=== PATIENT | male | born 1995 | race Caucasian/White ===

== ENCOUNTER 2018-08-03 10:00 | Emergency (ER) | payer OTHER, SELFPAY ==
[2018-08-03 10:01] VITALS: BP 140/98; PULSE 101; RESP 17; TEMP 36.4; O2SAT 99; BMI 31.5
--- NOTE | 2018-08-03 10:09 | RAD_ITS ---
STUDY: X-RAY CHEST REASON FOR EXAM: Male, 23 years old. Chest heaviness. Shortness of breath TECHNIQUE: PA and lateral views of the chest. COMPARISON: None. FINDINGS: EKG leads overlies the chest. There is no consolidation, pulmonary vascular congestion or pleural effusion of the visualized lungs. Bilaterally there is perihilar minimally increased interstitial thickening noted question mild bronchiolitis.. There is an elevated diaphragm right side more than the left. Normal size heart. Normal mediastinum and jono. Normal visualized pulmonary arteries. Normal visualized aortic arch and descending thoracic aorta. Normal visualized thoracic spine. Normal visualized ribs, clavicles, and shoulders. There is no demonstrated abnormality of the visualized soft tissue structures of the upper abdomen. RAD/Chest PA and Lateral IMPRESSION: Perihilar minimally increased interstitial thickening noted, question mild bronchiolitis in the appropriate clinical context. No consolidation or vascular congestion. Electronically Signed: Nazia Rivero MD at 10:59 EDT Tel , Service support ,
--- NOTE | 2018-08-03 10:09 | EKG12_ITS ---
Test Reason : PALPS Blood Pressure : / mmHG Vent. Rate : 090 BPM Atrial Rate : 090 BPM P-R Int : 132 ms QRS Dur : 088 ms QT Int : 356 ms P-R-T Axes : 062 068 050 degrees QTc Int : 435 ms Sinus rhythm with marked sinus arrhythmia Otherwise normal ECG Confirmed by DENAE TRAN, LEONARD ([id number]), editor publications RADHA CISNEROS ([id number]) on 08/05/2018 1:25:57 PM Referred By: ROBERT Confirmed By:LEONARD PHILIPPE MD
--- NOTE | 2018-08-03 10:12 | ED.DCSUM_ITS ---
- ER Visit Summary Date of Service: 08/03/18 Chief Complaint: Chest pain, palpitations History of Present Illness: The patient is a 23 M presents to the emergency department chest pain or palpitations. Patient states he has a history of palpitations. He states he will get them almost every other month for the past 2 years. He states that they are usually fleeting and last less than a day. Over the past 3 days, he states that they have been constant. He feels like his heart is racing and skipping beats. He denies any fevers but does admit to some chills. He also admits to some shortness of breath. He states that they have never been this long. He denies any medication use. He does not smoke. He denies any stimulant or caffeine use. He has no family history of cardiac disease. Physical Examination: Vital signs reviewed General: Well-nourished, well-developed Head: Normocephalic, atraumatic Eyes: Pupils equal and reactive, extraocular muscles intact Neck, supple, no lymphadenopathy Heart: Regular rate and rhythm Respiratory: No distress, clear bilaterally Abdomen: Soft, nontender, nondistended, no peritoneal signs Back: Nontender Extremities: Nontender, no edema, no cords Skin: Normal color no rash Neuro: Alert and oriented, no focal or lateralizing deficits Test Results: [] Emergency Department Course and Treatment: The patient presents to the emergency department palpitations and dyspnea. EKG was obtained. Shows sinus arrhythmia, but there is no WPW or prolonged QT. IV was established. Patient was given fluids. I obtained a chest x-ray which is unremarkable. Given his dyspnea and tachycardia, I also obtained a d-dimer which was negative. The patient's cardiac enzymes are normal. At this time, I do not suspect a dangerous cause of his symptoms. He has an unremarkable EKG. He does have some reproducible pain. I am going to treat him with anti-inflammatories and given outpatient follow-up. He is comfortable with this plan of care peer Treatment Plan: [] Disposition: Discharge Impression: 1. Symptomatic palpitations This note was generated with [employer] software. It may contain incorrect words, spelling, and punctuation that were not noted in review of the chart prior to signing ED Disposition - Plan for ED Patient: Chief Complaint: Palpitations Instructions: ED Palpitations Prescriptions: Naproxen [Naprosyn] 500 mg PO BID PRN #20 tab Referrals: Shawn Remy DO [NON CLINICAL AFFILIATE] -
--- NOTE | 2018-08-03 10:13 | ED.RN ---
NO OLD EKG
[2018-08-03 10:37] LABS: Absolute Lymphocyte Count 4.05 X10^3/ul (0.83-4.51); Absolute Neutrophil Count 4.2 X10^3/uL (2.0-7.7); Basophil# 0.03 X10^3/uL; Basophil% 0.3 % (0-1); Eosinophils% 3.3 % (0-5); Hematocrit 43.7 % (40-54); Hemoglobin 14.9 g/dl (13.0-16.5); Lymphocyte # 4.05 X10^3/ul (4.0); Lymphocyte % 43.9 % (19-41); Mean Corp Hgb Conc 34.1 g/gl (32-36); Mean Corpuscular Hgb 29.8 pg (27.0-32.0); Mean Corpuscular Volume 87.4 fL (80-94); Mean Platelet Vol. 10.5 fl (6.2-12.0); Monocyte# 0.63 X10^3/uL; Monocyte% 6.8 % (0-10); Neutrophil % 45.5 % (47-70); Platelet Count 265 K/mm3 (150-450); RBC Distribution Width CV 14.2 % (11.6-14.6); RBC Distribution Width SD 45.1 fl (35.1-43.9); White Blood Count 9.2 K/mm3 (4.4-11.0)
[2018-08-03 10:46] LABS: Anion Gap 9 (5-15); BUN 17 mg/dL (7-18); BUN/Creat Ratio 21.2 RATIO (10-20); Calcium,Total 9.5 mg/dL (8.5-10.1); Chloride 103 mmol/L (98-107); D-Dimer Quantitative (DVT/PE) < 0.27 FEU/ug/m (0.27-0.49); EST Glomerular Filtration Rate 125 mL/min (>60); Est Glom Filt Rate - Afr Amer 151 mL/min (>60); Estimated Creatinine Clearance 145.75 ml/min; Glucose 89 mg/dL (74-106); Magnesium 2.5 mg/dL (1.6-2.6); Potassium 3.5 mmol/L (3.5-5.1); Sodium Level 141 mmol/L (136-145)
[2018-08-03 10:47] LABS: POSITIVE COUNT NO; POSITIVE DIFFERENTIAL NO; POSITIVE MORPHOLOGY NO
[2018-08-03] MEDS: Aspirin 81 MG TAB.CHEW 324 MG PO (10:47)
[2018-08-03] MEDS: 0.9% Normal Saline 1,000 ML 1000 ML IV (10:47)
[2018-08-03 10:57] VITALS: O2SAT 98
[2018-08-03 11:13] VITALS: BP 133/77; PULSE 74; RESP 16; O2SAT 99
--- NOTE | 2018-08-03 11:14 | ED.RN ---
IV DC'ED, CATHETER INTACT, SMALL GAUZE DRESSING PLACED. DISCHARGE INSTRUCTIONS GIVEN TO AND REVIEWED WITH PATIENT, PATIENT DENIES QUESTIONS OR CONCERNS AND VOICES UNDERSTANDING OF DISCHARGE INSTRUCTIONS. PT AMBULATES OUT OF ROOM WITHOUT DIFFICULTY.
== END 2018-08-03 11:15 | disposition home or self-care (01) ==
LOC: ED 10:44
PROVIDERS: Emergency Provider Emergency Medicine
DX: R00.2 Palpitations (principal); R06.00 Dyspnea, unspecified; R00.0 Tachycardia, unspecified; R07.9 Chest pain, unspecified
CPT/HCPCS: 71046; 80048; 83735; 84484; 85025; 85379; 93005; 99285; J7030; A4216

== ENCOUNTER 2021-11-29 10:36 | Inpatient (IN) | payer OTHER, SELFPAY ==
[2021-11-29 10:40] VITALS: BP 146/97; PULSE 94; RESP 20; TEMP 36.8; O2SAT 100; BMI 39.0
--- NOTE | 2021-11-29 10:45 | RAD_ITS ---
STUDY: X-RAY - RIGHT FOOT CLINICAL: Right foot pain, right foot injury. TECHNIQUE: 3 view(s) of the foot. COMPARISON: None. FINDINGS: There is a nondisplaced fracture of the calcaneal body/posterior tuberosity of the calcaneus with apparent extension into the posterior subtalar articulation. Normal visualized subtalar, talonavicular, calcaneocuboid, tarsal and tarsometatarsal articulations. Normal metatarsi. Normal metatarsophalangeal joint of the great toe. Normal tibial and fibular sesamoid bones. Normal interphalangeal joint of the great toe. Normal phalanges of the great toe. Normal second through fifth metatarsophalangeal joints. Normal interphalangeal joints and phalanges of the lesser toes. There is soft tissue swelling. RAD/Foot min 3 Views IMPRESSION: Calcaneal fracture. Electronically Signed: Arsen Shen MD at 12:01 EST ,
--- NOTE | 2021-11-29 10:45 | RAD_ITS ---
STUDY: X-RAY - RIGHT TIBIA AND FIBULA REASON FOR EXAM: Right tibial/fibular pain, right lower leg injury. TECHNIQUE: 2 view(s) of the tibia and fibula were obtained. COMPARISON: None. FINDINGS: There is a focus of sclerosis in the lateral aspect of the mid tibial diaphysis, likely fibrous dysplasia. There is no demonstrated fracture of the tibia. Normal visualized fibula. There is a small ossicle adjacent to the lateral malleolus. There is soft tissue swelling. 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 Small ossicle adjacent to the lateral malleolus. No demonstrated recent fracture of the tibia/fibula. Electronically Signed: Arsen Shen MD at 12:01 EST ,
--- NOTE | 2021-11-29 10:47 | EDS_ITS ---
HPI History of Present Illness Chief Complaint: Lower Extremity Injury Narrative Narrative: Patient presents via EMS with injury to his right lower extremity, mainly has lower leg, ankle and foot. He denies any significant past medical history, but states that while he was at work, a large crate of milk cartons fell onto his right lower extremity. He states that he went down as the stack of crates was falling, and sat down, falling into a puddle. He denies hitting his head or loss of consciousness. He states that his right lower extremity was pinned under the crates. It was not for an extended period of time. He has diffuse pain mainly of his right knee and downward on his right lower extremity. He denies other injury. No back pain. PFSH PFSH Medical History no medical history Home Medications cetirizine [Zyrtec] 10 mg PO DAILY PRN 11/29/21 [History Last Taken Unknown] Allergy/AdvReac Type Severity Reaction Status Date / Time No Known Allergies Allergy Verified 08/03/18 10:01 Surgical History no surgical history Social History Smoking Status: Never smoker ROS ROS ED ROS Narrative Constitutional: No fever, no chills. HEENT: No sore throat. No neck pain. No loss of vision. No rhinorrhea. Cardiovascular: No chest pain. No palpitations. No pedal edema. Respiratory: No cough, no shortness of breath. Abdominal: No abdominal pain. No nausea. No vomiting. Genitourinary: No dysuria. No hematuria. Musculoskeletal: Right lower extremity pain, worse with movement, mainly in right tibia and fibula down to the ankle and foot. Neurologic: No headaches. No dizziness. No lightheadedness. Skin: No rash. No change in color. Psychiatric: No depression. No anxiety. EXAM Physical Exam Narrative Exam Narrative: Afebrile. Vital signs noted. GCS 15. ABCs intact. HEENT: Normocephalic. Atraumatic. PERRL, EOMI. Neck soft and supple. No point tenderness or step off. Cardiovascular: Regular rate and rhythm. No murmurs, rubs, or gallops appreciated. Respiratory: No tachypnea. Lungs clear to auscultation bilaterally. Gastrointestinal: Abdomen soft, nontender, with normoactive bowel sounds. No rebound or guarding. Neurological: Awake. Alert. Nonfocal, nonlateralizing. Skin: No rash. Normal color. No pallor. Minimal abrasion on right knee. Musculoskeletal: No pedal edema. Right lower extremity held in flexion at the knee, and external rotation. Range of motion limited secondary to pain. Palpable dorsalis pedis pulse. Positive swelling medial malleolus with tenderness. No palpable Achilles tendon deficit. Diffuse tenderness to palpation tibia. Const Vital Signs: 11/29/21 10:40 11/29/21 10:49 Temperature 98.2 F Temperature Source Axillary Pulse Rate 94 Respiratory Rate 20 H Blood Pressure 146/97 H 152/86 H Blood Pressure Mean 113 108 Pulse Ox 100 Oxygen Delivery Method Room Air MDM MDM MDM Narrative Medical decision making narrative: Patient received 50 mcg of fentanyl intravenously for analgesia by EMS. X-rays will be obtained of the right femur, tibia and fibula, and foot. He will be given additional analgesia in the form of Dilaudid 0.5 mg intravenously. X-ray of the femur shows no evidence of fracture. X-ray of the tibia and fibula shows small ossicle by the lateral malleolus but no acute fracture. Foot x-ray shows a nondisplaced calcaneal fracture. I discussed the patient with Dr. Yang with podiatry. He has seen and evaluated the patient in the ED. He ordered a CT scan and would like the patient observed because of all the soft tissue swelling. Patient will be placed on observation in stable condition. Radiography Diagnostic Testing: Clinical Impression(s) from Imaging Studies Foot X-Ray 11/29/21 10:45 IMPRESSION: Calcaneal fracture. 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 Small ossicle adjacent to the lateral malleolus. No demonstrated recent fracture of the tibia/fibula. Electronically Signed: Arsen Shen MD at 12:01 EST , Femur X-Ray 11/29/21 11:10 IMPRESSION: Unremarkable x-ray examination of the right femur. Electronically Signed: Arsen Shen MD at 11:57 EST , Discharge Plan Dx/Rx/DC Orders Clinical Impression: Calcaneus fracture, right, Crush injury lower leg Disposition Disposition: Acute Care Hospital [facility]
[2021-11-29 10:49] VITALS: BP 152/86
[2021-11-29] MEDS: Ondansetron 4 MG/2 ML Vial IV (10:54)
[2021-11-29] MEDS: HYDROmorphone 0.5 MG/0.5 ML SYRINGE IV ×2 (10:56→13:31)
--- NOTE | 2021-11-29 11:01 | ED.RN ---
PER UNIT SUPERVISOR, KATIE, NO DRUG TESTING
--- NOTE | 2021-11-29 11:10 | RAD_ITS ---
STUDY: X-RAY - RIGHT FEMUR REASON FOR STUDY: Right femur pain, right leg injury. TECHNIQUE: 2 view(s) of the femur. COMPARISON: None. FINDINGS: Normal visualized femur. Normal visualized soft tissue structure. RAD/Femur Min 2 Views IMPRESSION: Unremarkable x-ray examination of the right femur. Electronically Signed: Arsen Shen MD at 11:57 EST ,
--- NOTE | 2021-11-29 12:15 | NURSING ---
DR MEENAKSHI CISNEROS FOR DR JAMES
--- NOTE | 2021-11-29 12:53 | CT_ITS ---
STUDY: CT RIGHT FOOT REASON FOR EXAM: Right calcaneal fracture. TECHNIQUE: Thin section transaxial imaging of the foot was obtained, with sagittal and coronal reconstructed images. Individualized dose optimization techniques were used for this CT. COMPARISON: Radiographs 11/29/2021. FINDINGS: There is a comminuted fracture of the body/posterior tuberosity junction of the calcaneus extending to the anterior aspect of the posterior subtalar articulation (sagittal reconstructions 26-28) and extending into the sustentaculum mario (coronal reconstruction 62-66). There are small ossicles of the distal aspect of the lateral malleolus (coronal reconstruction 70). Normal visualized tibiotalar, talonavicular, calcaneocuboid, tarsal and tarsometatarsal articulations. Normal metatarsi. Normal metatarsophalangeal joint of the great toe. Normal tibial and fibular sesamoid bones. Normal interphalangeal joint of the great toe. Normal phalanges of the great toe. Normal second through fifth metatarsophalangeal joints. Normal interphalangeal joints and phalanges of the lesser toes. There is soft tissue swelling. CT/Extremity Lower without Contra IMPRESSION: Comminuted calcaneal fracture. Electronically Signed: Arsen Shen MD at 13:40 EST ,
[2021-11-29 13:02] VITALS: BP 148/94; PULSE 75; RESP 18; TEMP 36.6; O2SAT 100
--- NOTE | 2021-11-29 13:04 | ED.RN ---
patient has been filled out FROI. FROI has been given to Dr. Rios to sign and now has been given to [place] for medical records. Patient has also been given a copy for her personal records.
--- NOTE | 2021-11-29 13:24 | NURSING ---
MED SURG OBS SABINA CALCANEOUS FRACTURE
[2021-11-29 14:13] VITALS: BMI 37.5
[2021-11-29 14:30] VITALS: BP 139/83; PULSE 77; RESP 16; TEMP 36.8; O2SAT 95
--- NOTE | 2021-11-29 14:44 | NURSING ---
Addendum entered by Chandni Gonsales 11/29/21 15:19: pt reports numbness to right lower extremity, able to move toes slightly upon request. very painful with minimal palpation. Original Note: neuro/circulatory check completed. pulse documented as right, but unable to specify location as it is not available. circ check completed to right dorsalis pedis pulse, 2+.
[2021-11-29] MEDS: Acetaminophen 500 MG Tablet PO ×3 (15:05→22:09)
[2021-11-29] MEDS: oxyCODONE 5 MG Tablet PO ×2 (15:06→20:51)
[2021-11-29] MEDS: MethylPREDNISolone DosePak 4 MG BOX PO ×2 (16:49→22:09)
--- NOTE | 2021-11-29 16:50 | HP.PCM_ITS ---
History and Physical Date of Admission: 11/29/21 This 26-year-old male was seen in the ED after approximately 40 gallons of milk within the milk cartons collapsed on his right foot creating a crush type injury. This occurred on today's date 11/29/2021 at approximately 12 PM. Patient was seen in the ED multiple right lower extremity radiographs were taken including femoral tibiofibular and foot. There was noted to be a nondisplaced calcaneal fracture upon the foot radiographs. After the patient suffered the injury he noted immediate pain swelling and inability to bear weight. Pain is approximately 6 out of 10 at rest. Patient denies any loss of sensation, paralysis, paresthesias at this time. Patient pain has been controlled with pain medication. Patient denies any other locations for pain at this time relates that it is predominantly at the level of the right calcaneus. No other complaints. Past medical history: Seasonal allergies Past surgical history: Denies Social history: Occasional alcohol, denies smoking illicit drug use [facility] Family [facility] noncontributory Allergies: None Objective: Vital signs: BP 139/83 pulse 77 respiratory rate 16 temperature 98.2 O2 saturation 95 Patient seen resting comfortably in bed. Patient is alert, oriented to person place and time. Vascular: Dorsalis pedis pulses palpable 2 out of 4 on the right and left. Triphasic upon Doppler examination on the right. Posterior tibial pulse on the right nonpalpable, triphasic upon Doppler examination. Posterior tibial pulse on the left palpable 2 out of 4. +2 pitting edema noted to the right foot and ankle. Foot is warm to palpation bilaterally. No evidence of pallor at this time. Neurologic: Light touch and protective sensation intact to bilateral lower extremity. Two-point discrimination intact. Sharp dull sensation intact. Muscular function remains intact to bilateral lower extremity. Dermatologic: Ecchymosis noted to the medial ankle along the course of the tarsal tunnel. Skin otherwise intact no evidence of open wounds or specific vesicular or bullous formation at this time. Musculoskeletal: Pain limited to the right calcaneal region subtalar joint, ankle joint guarded. Mild pain with passive range of motion of lesser digits, the pain is associated with the medial ankle and likely related to the course of the flexor tendons along that region. No gross deformity observed at this time. Assessment & Plan Assessment/Plan (1) Calcaneus fracture, right: QUALIFIERS: Encounter type: initial encounter Calcaneus location: body Fracture type: closed Fracture alignment: displaced Qualified Code(s): S92.011A - Displaced fracture of body of right calcaneus, initial encounter for closed fracture PLAN: Patient examined and evaluated. All findings cussed with patient in detail. Radiographs reviewed, demonstrate calcaneal body fracture at the level of the middle facet of the subtalar joint. Does not demonstrate a classic [place] classification of a calcaneal fracture due to crush type injury. CT scan was ordered in the ED, upon review there is significant comminution along the middle and posterior facets with a complete fracture of the body of the calcaneus with a mild lateral wall blowout. Clinically the patient is having significant pain which correlates with this injury. He is resting comfortably in bed and shows minimal signs of compartment syndrome at this time. Due to significance of injury, crush mechanism, and level of edema patient was admitted for every 2 hours neurovascular checks to watch for development of compartment syndrome. Patient was ordered a Medrol Dosepak to help with the patient's swelling along with Tylenol every 4 hours and oxycodone every 4 hours for pain. Patient has been placed n.p.o. in case any signs of compartment syndrome were to develop. Nursing was instructed to contact me if there are any changes with regards to his neurovascular status over the course of the next 24 hours. Patient will require open reduction and internal fixation of his right calcaneal fracture; however, due to his level of edema and the amount of soft tissue damage this procedure will be delayed until there is some resolution of the soft tissue envelope. This is to ensure that there are minimal postoperative complications such as postoperative wound dehiscence and infection formation which could be life and limb threatening in an injury such as this. Patient will be kept n.p.o. in case there are any changes in neurovascular status over the course of the next 24 hours or until reevaluation in the morning at which time he will be evaluated by physical therapy and likely discharged granted his neurovascular status does not deteriorate. At this time I do not think it would be clinically appropriate to perform compartments pressure testing as the patient has minimal in symptoms and this would likely cause the patient significant distress. Will continue to monitor closely. (2) Crush injury lower leg: QUALIFIERS: Encounter type: initial encounter Laterality: right Qualified Code(s): S87.81XA - Crushing injury of right lower leg, initial encounter
[2021-11-29 19:54] VITALS: BP 140/88; PULSE 86; RESP 16; TEMP 36.6; O2SAT 97
[2021-11-29] MEDS: 0.9% Saline Lock 10 ML Syringe IV (22:11)
[2021-11-30] VITALS (11 sets, daily range): BP systolic 111–138; BP diastolic 68–98; PULSE 80–115; RESP 14–18; TEMP 36.3–37.6; O2SAT 90–100; BMI 37.5
[2021-11-30] MEDS: Acetaminophen 500 MG Tablet PO ×5 (02:53→22:16)
[2021-11-30] MEDS: MethylPREDNISolone DosePak 4 MG BOX PO ×4 (07:55→22:17)
[2021-11-30] MEDS: oxyCODONE 5 MG Tablet PO ×2 (07:58→12:22)
[2021-11-30] MEDS: Morphine 4 MG/ML Syringe IV (11:29)
[2021-11-30] MEDS: 0.9% Saline Lock 10 ML Syringe IV (11:30)
--- NOTE | 2021-11-30 12:38 | PCM.PROGNOTE ---
Subjective Subjective This 26 yeaqr old male seen bedside this morning. Patient able to move digits, notes increased pain at this time after physicaly therapy evaluation. Report 7/10 at rest, 10/10 with any movement. Denies any loss of sensation. No other complaints. Objective Data Objective Data Vital Signs: Vital Signs Temp Pulse Resp BP Pulse Ox 97.6 F L 80 14 126/76 H 99 11/30/21 07:49 11/30/21 07:49 11/30/21 07:49 11/30/21 07:49 11/30/21 07:49 Oxygen Delivery Method Room Air Weight: 118.614 kg Body Mass Index (BMI) 37.5 Intake & Output: Intake and Output for Last 24 Hours 11/28/21 11/29/21 11/30/21 23:59 23:59 23:59 Intake Total 150 / 150 Output Total 1275 / 1275 650 / 650 Balance -1125 / -1125 -650 / -650 Radiography Diagnostic Testing: Radiology Impression Lower Extremity CT 11/29/21 12:53 IMPRESSION: Comminuted calcaneal fracture. Electronically Signed: Arsen Shen MD at 13:40 EST , Physical Exam Narrative Neurovascular status unchanged today, light touch, two-point discrimination intact. DP/PT pulses dopplerable to right foot triphasic. Foot warm to touch. Increased pain with passive range of motion of lesser digits. Assessment & Plan Assessment/Plan (1) Calcaneus fracture, right: QUALIFIERS: Calcaneus location: body Encounter type: initial encounter Fracture alignment: displaced Fracture type: closed Qualified Code(s): S92.011A - Displaced fracture of body of right calcaneus, initial encounter for closed fracture PLAN: Patient examined and evaluated. All findings cussed with patient in detail. Due to increased pain, IV morphine single dose 4mg ordered. PAtient continued to remain intractable. Due to sudden spike in pain this morning and crush injury, compartment pressures obtained. Patient was consented for compartment pressure testing, site was prepped with betadine paint to medial right heel at site of abductor hallucis muscle belly. local anesthesia with local inflitration technique performed at site with 3cc of 2.0% lidocaine. Using wick's catheter compartment pressure testing was performed. Medial compartment pressure noted to be: 38mmHG confirming presence of compartment syndrome. Patient will be changed to inpatient and an emergent fasciotomy to decompression the 9 compartments of the foot will be performed to prevent any ischemic complications to the right foot. This will likely require delayed primary closure on friday or friday on next week. Delayed ORIF of the calcaneal fracture will be performed upon soft tissue envelope resolution. Will continue to follow patiuent daily. (2) Crush injury lower leg: QUALIFIERS: Encounter type: initial encounter Laterality: right Qualified Code(s): S87.81XA - Crushing injury of right lower leg, initial encounter
[2021-11-30] MEDS: Lactated Ringers 1,000 ML 15 ML IV (13:00)
[2021-11-30] MEDS: Bupivacaine Mpf 0.5% 30 ML VIAL (13:45)
[2021-11-30] MEDS: Lidocaine 2% (20 ml mdv) 20 ML Vial INFILT (14:02)
--- NOTE | 2021-11-30 14:18 | PCM.OP.BLANK ---
Problems Associated Problem List Diagnoses (1) Compartment syndrome: (2) Calcaneus fracture, right: (3) Crush injury lower leg: Operative Report Date of Procedure: 11/30/21 Surgeon: Isiah Yang D.P.M Nuclear Medical Technologist: clerical assistant Mello Ding D.P.M. PGY 2 Preoperative diagnosis: Compartment syndrome right foot secondary to a crush injury and calcaneal postoperative diagnosis: Same Procedure: Fasciotomy right foot for decompression of compartment syndrome Anesthesia: General Hemostasis: No tourniquet Estimated blood loss: 30 cc Materials: None Injectables: 0.5% Marcaine plain 20 cc Indications: Was brought to the emergency room via squad after he suffered a crush related injury when a stack of milk cartons in their crates fell on his right lower extremity, it was approximately 40 gallons worth. Patient was seen in the ED and noted to have a calcaneal fracture secondary to this crush injury. A CT scan was ordered and confirmed a comminuted body fracture displaced. At that time the patient was neurovascularly intact pain was well controlled rated 5 out of 10 minimal pain with range of motion of lesser digits there was good color to the foot. This morning, the patient noted sudden increase in pain to 7 out of 10 with rest and 10 out of 10 with light movement, this did not respond to IV morphine 4 mg. He noted increased numbness tingling to his right lower extremity with a [id number] sensation. Decision was made to perform compartment pressure testing, compartment pressure to the medial foot was noted to be 38 mmHg which is greater than the normal 20-30. There is at that time the diagnosis for compartment syndrome was confirmed and patient was taken for emergent fasciotomy. Procedure in detail: Patient was induced under general anesthesia, right ankle block was performed using 20 cc of half percent Marcaine plain using standard aseptic technique a well-padded right calf tourniquet was applied right lower extremity however this was not used throughout the case. Right lower extremity was then scrubbed, prepped, draped using typical aseptic manner. Upon approval by anesthesia, incisions were drawn out using standard fasciotomy technique with the addition of the medial compartment due to extensive edema to this area. 2 dorsal incisions just medial to the second metatarsal and just lateral to the fourth metatarsal were drawn and made with a 15 blade blunt dissection was taken down the level of deep fascia. At this time deep fascia was then released alleviating pressure within the compartments located in the first second third and fourth interosseous spaces. The dorsal interossei muscle could be visualized and demonstrated healthy black bleeding with no signs of ischemia. A third incision was made along the medial heel along the course of the abductor hallucis tendon this incision was made blunt dissection was taken the level of the fascia of the abductor hallucis muscle belly, upon penetration of this deep fascial layer there is noted to be significant decompression of pressure and healthy bleeding to this muscle with no signs of ischemia at this time. The combination of all 3 of these incisions on Levin's of the foot were decompressed. These incisions will be left open and likely will be closed at a later date patient will Be kept through the weekend for observation for resolution of intractable pain, incision sites will be inspected on a daily basis. At this time the incisions were dressed with Adaptic 4 x 4's ABD pads and a dry sterile dressing with a 4 inch Jorge wrap using no compression. No pathologic specimens none, no complications, there is healthy bleeding to all identified fascial compartments suggestive of decompression of any compartment syndrome at this time. Patient tolerated procedure anesthesia well in apparent satisfactory condition is transferred to PACU vital signs stable and vascular status intact all digits for further monitoring prior to transfer back to floor.
[2021-12-01 00:28] VITALS: BP 119/73; PULSE 79; RESP 18; TEMP 36.6; O2SAT 97
[2021-12-01] MEDS: oxyCODONE 5 MG Tablet PO ×4 (00:28→17:07)
[2021-12-01] MEDS: Acetaminophen 500 MG Tablet PO ×6 (02:17→22:17)
[2021-12-01 04:49] VITALS: BP 111/68; PULSE 80; RESP 18; TEMP 36.6; O2SAT 94
[2021-12-01 08:25] VITALS: BP 154/93; PULSE 97; RESP 16; TEMP 36.9; O2SAT 95
[2021-12-01] MEDS: MethylPREDNISolone DosePak 4 MG BOX PO ×4 (08:28→22:17)
--- NOTE | 2021-12-01 09:05 | PCM.PROGNOTE ---
Subjective Subjective This 26-year-old male was seen bedside status post right foot fasciotomy for decompression of compartment syndrome, patient is 1 day postop. Patient notes improved pain today at rest states is a 5 out of 10. Patient notes he has not needed IV pain medication. Notes some continued tingling into his digits on the right lower extremity. Denies any fever, chills, nausea, vomiting, chest pain, calf pain, shortness of breath. Patient voiding urine and passing gas. Objective Data Objective Data Vital Signs: Vital Signs Temp Pulse Resp BP Pulse Ox 98.4 F 97 16 154/93 H 95 12/01/21 08:25 12/01/21 08:25 12/01/21 08:25 12/01/21 08:25 12/01/21 08:25 Oxygen Flow Rate (L/min) 2 Oxygen Delivery Method Room Air Weight: 118.614 kg Body Mass Index (BMI) 37.5 Intake & Output: Intake and Output for Last 24 Hours 11/29/21 11/30/21 12/01/21 23:59 23:59 23:59 Intake Total 150 / 150 110.5 / 110.5 Output Total 1275 / 1275 1400 / 1400 600 / 600 Balance -1125 / -1125 -1289.5 / -1289.5 -600 / -600 Lab / Micro Data Micro: Microbiology 11/30/21 13:00 Nasal Secretion SARS-CoV-2 Antigen (Rapid) - Final Physical Exam Narrative Upon examination of the right lower extremity the fasciotomy incisions to do the right foot appear to be intact demonstrating mild sanguinous drainage. No signs of infection. Dorsalis pedis posterior tibial pulses palpable at this time 2 out of 4. Patient maintains light touch and two-point discrimination to the right lower extremity. There is good color to the right foot warmth upon palpation and brisk capillary fill time to all digits on the right lower extremity. No pain with calf squeeze bilaterally. Assessment & Plan Assessment/Plan (1) Compartment syndrome: QUALIFIERS: Compartment syndrome type: traumatic Encounter type: subsequent encounter Compartment syndrome location: lower extremity Laterality: right Qualified Code(s): T79.A21D - Traumatic compartment syndrome of right lower extremity, subsequent encounter PLAN: Patient examined and evaluated, all findings With patient in detail. Patient's edema right lower extremity appears improved at this time, pain is improved at this time and well controlled without IV pain medication. Patient has continued paresthesias he was educated that this may take weeks to months to resolve. Right lower extremity dressing was removed incision sites were inspected and cleansed and redressed with Adaptic dry sterile dressing and light compression with an Jorge wrap. His incisions appear healthy at this time there appears to be good perfusion to the right lower extremity no residual signs of compartment syndrome at this time. We will continue to observe the patient for an additional 24 hours at which time she is doing well we will likely discharge him to home in a posterior splint with nonweightbearing to his right lower extremity and he will follow up in our office in 1 week for surgical planning to perform delayed open reduction with internal fixation of his right calcaneus fracture. At that time we will his fasciotomy incisions in a delayed primary closure fashion. We will reevaluate the patient tomorrow nonweightbearing to right lower extremity. (2) Calcaneus fracture, right: QUALIFIERS: Encounter type: initial encounter Calcaneus location: body Fracture type: closed Fracture alignment: displaced Qualified Code(s): S92.011A - Displaced fracture of body of right calcaneus, initial encounter for closed fracture (3) Crush injury lower leg: QUALIFIERS: Encounter type: initial encounter Laterality: right Qualified Code(s): S87.81XA - Crushing injury of right lower leg, initial encounter
[2021-12-01] MEDS: Docusate Sodium 100 MG Capsule PO (10:06)
[2021-12-01] MEDS: Morphine 4 MG/ML Syringe IV (11:24)
[2021-12-01] MEDS: 0.9% Saline Lock 10 ML Syringe IV (11:27)
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
[2021-12-01 14:35] VITALS: BP 135/76; PULSE 89; RESP 16; TEMP 36.5; O2SAT 95
[2021-12-01 20:28] VITALS: BP 128/84; PULSE 82; RESP 16; TEMP 36.7; O2SAT 94
[2021-12-02 02:10] VITALS: BP 135/77; PULSE 76; RESP 16; TEMP 36.6; O2SAT 94
[2021-12-02] MEDS: Acetaminophen 500 MG Tablet PO ×4 (02:32→13:58)
[2021-12-02 08:10] VITALS: BP 132/83; PULSE 67; RESP 16; TEMP 36.5; O2SAT 98
[2021-12-02] MEDS: MethylPREDNISolone DosePak 4 MG BOX PO ×2 (08:15→11:55)
[2021-12-02] MEDS: oxyCODONE 5 MG Tablet PO ×2 (08:15→13:57)
--- NOTE | 2021-12-02 10:16 | PCM.PROGNOTE ---
Subjective Subjective 26-year-old was seen bedside. Patient 2 days postop right foot fasciotomy, pain well controlled. Patient denies any constitutional symptoms. Patient passing gas and voiding urine. No other complaints overnight. Objective Data Objective Data Vital Signs: Vital Signs Temp Pulse Resp BP Pulse Ox 97.8 F 76 16 135/77 H 94 12/02/21 02:10 12/02/21 02:10 12/02/21 02:10 12/02/21 02:10 12/02/21 02:10 Oxygen Flow Rate (L/min) 2 Oxygen Delivery Method Room Air Weight: 118.614 kg Body Mass Index (BMI) 37.5 Intake & Output: Intake and Output for Last 24 Hours 11/30/21 12/01/21 12/02/21 23:59 23:59 23:59 Intake Total 110.5 / 110.5 800 / 800 Output Total 1400 / 1400 600 / 1100 500 / 500 Balance -1289.5 / -1289.5 200 / -300 -500 / -500 Lab / Micro Data Micro: Microbiology 11/30/21 13:00 Nasal Secretion SARS-CoV-2 Antigen (Rapid) - Final Physical Exam Narrative Upon examination of the right lower extremity the fasciotomy incisions to do the right foot appear to be intact demonstrating mild sanguinous drainage. No signs of infection. Dorsalis pedis posterior tibial pulses palpable at this time 2 out of 4. Patient maintains light touch and two-point discrimination to the right lower extremity. There is good color to the right foot warmth upon palpation and brisk capillary fill time to all digits on the right lower extremity. No pain with calf squeeze bilaterally. Assessment & Plan Assessment/Plan (1) Compartment syndrome: QUALIFIERS: Compartment syndrome type: traumatic Encounter type: subsequent encounter Compartment syndrome location: lower extremity Laterality: right Qualified Code(s): T79.A21D - Traumatic compartment syndrome of right lower extremity, subsequent encounter PLAN: Patient examined and evaluated, all findings With patient in detail. Patient's edema right lower extremity appears improved at this time, pain is improved at this time and well controlled without IV pain medication. Patient has continued paresthesias he was educated that this may take weeks to months to resolve. Right lower extremity dressing was removed incision sites were inspected and cleansed and redressed with Adaptic dry sterile dressing and a well-padded posterior splint. His incisions appear healthy at this time there appears to be good perfusion to the right lower extremity no residual signs of compartment syndrome at this time. Patient will be discharged today, he will maintain a nonweightbearing status to his right lower extremity and will follow up in clinic this week. Once there is resolution of the soft tissue envelope we will plan for delayed ORIF of right comminuted, displaced calcaneal fracture. (2) Calcaneus fracture, right: QUALIFIERS: Encounter type: initial encounter Calcaneus location: body Fracture type: closed Fracture alignment: displaced Qualified Code(s): S92.011A - Displaced fracture of body of right calcaneus, initial encounter for closed fracture (3) Crush injury lower leg: QUALIFIERS: Encounter type: initial encounter Laterality: right Qualified Code(s): S87.81XA - Crushing injury of right lower leg, initial encounter
--- NOTE | 2021-12-02 10:46 | DS.PCM_ITS ---
Providers Date of Admission: 11/29/21 Primary Care Physician: Didi Primary Care Phys Reason For Visit: CALCANEUS FRACTURE Diagnosis Discharge Diagnosis (1) Compartment syndrome: Status: Acute Code(s): T79.A0XA - Compartment syndrome, unspecified, initial encounter Qualifiers: Compartment syndrome type: traumatic Encounter type: subsequent encounter Compartment syndrome location: lower extremity Laterality: right Qualified Code(s): T79.A21D - Traumatic compartment syndrome of right lower extremity, subsequent encounter (2) Calcaneus fracture, right: Status: Acute Code(s): S92.001A - Unspecified fracture of right calcaneus, initial encounter for closed fracture Qualifiers: Encounter type: initial encounter Calcaneus location: body Fracture type: closed Fracture alignment: displaced Qualified Code(s): S92.011A - Displaced fracture of body of right calcaneus, initial encounter for closed frac ture (3) Crush injury lower leg: Status: Acute Code(s): S87.80XA - Crushing injury of unspecified lower leg, initial encounter Qualifiers: Encounter type: initial encounter Laterality: right Qualified Code(s): S87.81XA - Crushing injury of right lower leg, initial encounter Medications at Discharge Home Medications cetirizine [Zyrtec] 10 mg PO DAILY PRN 11/29/21 ibuprofen 800 mg PO Q8H #30 tab 12/02/21 oxycodone-acetaminophen [Percocet] 1 tab PO Q6H PRN 7 Days #28 tab 12/02/21 Hospital Course Operations - (fasciotomy, right foot) Procedures - (compartment pressure testing) Summary of Care Provided Minutes Spent on Discharge: 30 Hospital Course: Patient was admitted for 24-hour observation for development of compartment syndrome after he suffered a right foot crush injury related to 40 gallons of milk cartons collapsing on his right lower extremity. He suffered a comminuted calcaneal fracture confirmed by CT with diffuse swelling. Initially his pain was well controlled with p.o. medication; however, over the next 12 hours his pain did spike an increase at approximately 10:30 AM on Friday, 11 hours after the injury. At this time decision to take compartment pressures was made and his medial foot compartment yielded a pressure measurement of 38 mmHg. He was taken to the OR emergently and a fasciotomy was performed. Patient's status was then converted to inpatient for further monitoring for additional signs of compartment syndrome. Within 24 hours of the fasciotomy the patient's pain was significantly improved. Incision sites were clean plan observation. Patient was placed in a well-padded posterior splint and discharged home, a delayed ORIF of the calcaneus will be performed once there is resolution of the soft tissue edema. Patient will follow up in 1 week we will maintain a nonweightbearing status keeping his dressing clean dry and intact. Physical Exam Narrative Upon examination of the right lower extremity the fasciotomy incisions to do the right foot appear to be intact demonstrating mild sanguinous drainage. No signs of infection. Dorsalis pedis posterior tibial pulses palpable at this time 2 out of 4. Patient maintains light touch and two-point discrimination to the right lower extremity. There is good color to the right foot warmth upon palpation and brisk capillary fill time to all digits on the right lower extremity. No pain with calf squeeze bilaterally. Const Orientation / Consciousness: awake, oriented to person, oriented to place and oriented to time Weight / BMI Weight Weight: 118.614 kg Body Mass Index (BMI) 37.5 ABG / Lab / Microbiology Data Microbiology: Microbiology 11/30/21 13:00 Nasal Secretion SARS-CoV-2 Antigen (Rapid) - Final Meaningful Use Info Meaningful Use Diagnoses (Choose all that apply): None applicable Discharge Plan Admission Admit Date/Time: 11/29/21 14:26 Primary Reason for Your Visit: Compartment syndrome, right foot Attending Provider: Isiah Yang Primary Care Provider: Care Physician,No Primary Instructions Patient Instructions: Post-Op Tips: Foot Additional Instructions / Restrictions: Patient will keep dressing, posterior splint clean dry and intact until follow- up in 1 week. Maintain nonweightbearing status right lower extremity assisted with walker. Limit ambulation to in-house transfer to bathroom. Elevate right lower extremity above heart while at rest. Ice behind knee 3 times a day for 15 minutes, right lower extremity. Take pain medication as directed Percocet 5 mg / 325 mg acetaminophen. Take 1 tablet every 4-6 hours. Can supplement with up to 800 mg of ibuprofen 3 times a day. Max dosage 2400 mg per 24 hours. Follow-up in 1 week. Discharge Orders/Prescriptions Prescriptions: New oxycodone-acetaminophen [Percocet] 5-325 mg tablet 1 tab PO Q6H PRN (Reason: pain) 7 Days Qty: 28 RF: 0 ibuprofen 800 mg tablet 800 mg PO Q8H Qty: 30 RF: 0 Continued cetirizine [Zyrtec] 10 mg Tablet 10 mg PO DAILY PRN (Reason: Allergy Symptoms) RF: 0 Referrals / Follow Up: Care Physician,No Primary [Primary Care Provider] - Disposition Disposition (needs filled in before D/C Order can be placed): Home, Self Care
[2021-12-02] MEDS: 0.9% Saline Lock 10 ML Syringe IV (11:52)
[2021-12-02] MEDS: Morphine 4 MG/ML Syringe IV (11:52)
[2021-12-02 13:45] VITALS: BP 139/88; PULSE 91; RESP 18; TEMP 36.7; O2SAT 95
== END 2021-12-02 14:30 | disposition home or self-care (01) | DRG 501 ==
LOC: ED 13:00 → MS3 11-30 12:55
PROVIDERS: Admitting Provider Podiatrist; Emergency Provider Emergency Medicine; Visit Provider Podiatrist
PROC: 0KNV0ZZ Release Right Foot Muscle, Open Approach (ICD-10-PCS; principal; 2021-11-30 14:40)
DX: S92.011A Displaced fracture of body of right calcaneus, initial encounter for closed fracture (principal); T79.A21A Traumatic compartment syndrome of right lower extremity, initial encounter; W23.0XXA Caught, crushed, jammed, or pinched between moving objects, initial encounter; Y93.9 Activity, unspecified; Y92.9 Unspecified place or not applicable
CPT/HCPCS: 73552; 73590; 73630; 73700; 87426; 97116; 97162; 99251; 99285; J7120; A4216; G0463; J2405; J3490

== ENCOUNTER 2021-12-03 06:44 | Emergency (ER) | payer OTHER, SELFPAY ==
[2021-12-03 06:46] VITALS: BP 145/95; PULSE 101; RESP 21; TEMP 35.9; O2SAT 96; BMI 37.4
[2021-12-03] MEDS: MethylPREDNISolone 125 MG/2 ML Vial IV (07:19)
[2021-12-03] MEDS: Ondansetron 4 MG/2 ML Vial IV (07:19)
[2021-12-03] MEDS: Ketorolac 15 MG/ML Vial IV (07:19)
[2021-12-03] MEDS: Morphine 4 MG/ML Syringe IV (07:20)
--- NOTE | 2021-12-03 07:28 | EDS_ITS ---
HPI HPI - URI History of Present Illness Chief Complaint: Other, Pain/Inj Narrative Narrative: 26-year-old male presenting with pain in his uvula and throat. Patient states that on 11/29/2021 he had a milk carton crate collapse and 40 gallons of milk fell onto his right foot. He was diagnosed with a nondisplaced calcaneal fracture. He states he had a lot of swelling and could not bear weight. He was admitted to the hospital. Apparently he had acute onset pain that was worsening and he was taken to the OR for compartment syndrome on Friday. He states that over the course of the weekend he is noticed some swelling in his uvula. He was supposed take ibuprofen and Tylenol and fill a prescription for Percocet. He has not been able to take the Percocet because he has not filled the prescription. He has not been able to take his medications overnight because of his sore throat and difficulty swallowing. He states he woke up this morning gagging. He does not feel unwell. Is not had fever, chills, cough. He does not feel short of breath. He is tolerating his own secretions and has a somewhat muffled voice but is able to speak. He does not have any abdominal pain. ROS ROS ED Constitutional Constitutional ED: Denies chills or fever(s) Eyes Eyes: Denies blurry vision or change in vision ENT ENT ED: Reports sore throat Cardiovascular Cardiovascular: Denies chest pain, palpitations or racing heartbeat Respiratory/Chest Respiratory/Chest: Denies cough, dyspnea or sputum Gastrointestinal Gastrointestinal: Reports nausea and vomiting; Denies abdominal pain, constipation or diarrhea Genitourinary Genitourinary ED: Denies dysuria or hematuria Musculoskeletal Musculoskeletal: Denies arthralgias, myalgias or neck pain Integumentary Denies rash Neurologic Neurologic: Denies headache(s) or weakness PFSH PFSH Home Medications cetirizine [Zyrtec] 10 mg PO DAILY PRN 11/29/21 [History Last Taken 1 Week Ago ~11/22/21] ibuprofen 800 mg PO Q8H #30 tab 12/02/21 [Rx Last Taken Unknown] oxycodone-acetaminophen [Percocet] 1 tab PO Q6H PRN 7 Days #28 tab 12/02/21 [Rx Last Taken Unknown] Allergy/AdvReac Type Severity Reaction Status Date / Time No Known Allergies Allergy Verified 08/03/18 10:01 Social History Smoking Status: Never smoker EXAM Physical Exam Const Vital Signs: 12/03/21 06:46 12/03/21 06:52 Temperature 96.6 F L Temperature Source Core Pulse Rate 101 H Respiratory Rate 21 H Respiratory Effort Non-Labored Respiratory Pattern Normal Blood Pressure 145/95 H Blood Pressure Mean 111 Pulse Ox 96 Oxygen Delivery Method Room Air Positive well nourished General Appearance ED: NAD; Negative for pallor HEENT normocephalic and atraumatic Face and Sinus: normal facial exam and sinuses nontender Nose: external nose normal, nares normal and nasal mucous membranes and turbinates normal Mouth ED: Yes lips normal, Yes tongue normal, Yes salivary gland normal, Yes moist mucous membranes normal, No drooling and No trismus Mouth: lips normal, tongue normal, salivary gland normal, No drooling and No trismus Throat: tonsils abnormal bilateral erythema, exudates and hypertrophy and uvular edema Eyes PERRL and EOMs intact bilaterally Neck no lymphadenopathy, supple, no meningeal signs and no JVD Neck Narrative: No stridor General: Negative for anterior neck swelling Resp normal respiratory effort and clear to auscultation bilaterally Cardio Rate: regular rate Rhythm: regular rhythm GI non-tender and non-distended Palpation: soft Neuro oriented x3 and CN's II-XII intact bilaterally Sensorium / Orientation: alert Psych mental status grossly normal Skin General Skin Exam: Negative for jaundice or pallor Lesions: no lesions Rashes: no rashes MDM MDM MDM Narrative Medical decision making narrative: Patient presenting with erythema and swelling to the posterior oropharynx. His uvula is slightly swollen as well. He is able to tolerate his own secretions and does have a somewhat muffled voice. He states he can take his home medications because of the pain in his throat. This is also making him gag. Patient does not feel ill otherwise. IV was placed and he was given a liter of normal saline with Toradol, Zofran, morphine, Solu- Medrol. Patient reevaluated at 0820 and is doing much better. He is talking in full sentences without difficulty. His throat pain is much improved. I feel he stable for discharge at this time. He has pain medication prescribed for him. He will return for new or worsening symptoms. Impression: 1. Uvulitis Discharge Plan Triage Chief Complaint: Other, Pain/Inj ED Provider: Buddy Mcdaniel Dx/Rx/DC Orders Instructions: ED Uvulitis Prescriptions: No Action cetirizine [Zyrtec] 10 mg Tablet 10 mg PO DAILY PRN (Reason: Allergy Symptoms) RF: 0 oxycodone-acetaminophen [Percocet] 5-325 mg tablet 1 tab PO Q6H PRN (Reason: pain) 7 Days Qty: 28 RF: 0 ibuprofen 800 mg tablet 800 mg PO Q8H Qty: 30 RF: 0 Primary Care Provider: Care Physician,No Primary Referrals: Care Physician,No Primary [Primary Care Provider] - Disposition Disposition: Home, Self Care
[2021-12-03] MEDS: dexAMETHasone 10 MG/ML Vial PO.IVFORM (08:41)
[2021-12-03 08:46] VITALS: BP 136/90; PULSE 78; RESP 16; O2SAT 100
== END 2021-12-03 08:46 | disposition home or self-care (01) ==
PROVIDERS: Emergency Provider Student in an Organized Health Care Education/Training Program; Visit Provider Student in an Organized Health Care Education/Training Program
DX: K12.2 Cellulitis and abscess of mouth (principal)
CPT/HCPCS: 96374; 96375; 99284; A4216; J2405

== ENCOUNTER 2021-12-14 09:54 | Day surgery (SDC) | payer OTHER, SELFPAY ==
[2021-12-14] VITALS (11 sets, daily range): BP systolic 129–153; BP diastolic 82–129; PULSE 99–115; RESP 16; TEMP 36.8–37.8; O2SAT 92–99; BMI 36.6
--- NOTE | 2021-12-14 10:10 | EKG12_ITS ---
Test Reason : PRE-OP Blood Pressure : / mmHG Vent. Rate : 094 BPM Atrial Rate : 094 BPM P-R Int : 138 ms QRS Dur : 076 ms QT Int : 340 ms P-R-T Axes : 046 051 034 degrees QTc Int : 425 ms Normal sinus rhythm Normal ECG When compared with ECG of 03-AUG-2018 10:16, No significant change was found Confirmed by HENRY TRAN, MELY ([id number]), general expeditor MILA MARSH ([id number]) on 12/17/2021 2:39:05 PM Referred By: Isiah Yang Confirmed By:MELY FIGUEROA MD
[2021-12-14] MEDS: Lactated Ringers 1,000 ML 15 ML IV (10:33)
[2021-12-14 10:43] LABS: Hematocrit 43.4 % (40-54); Hemoglobin 14.2 g/dL (13.0-16.5); Mean Corp Hgb Conc 32.7 g/dL (32-36); Mean Corpuscular Hgb 28.7 pg (27.0-32.0); Mean Corpuscular Volume 87.9 fL (80-94); Platelet Count 358 K/mm3 (150-450); RBC Distribution Width CV 14.2 % (11.6-14.6); RBC Distribution Width SD 45.6 fl (35.1-43.9); Red Blood Count 4.94 M/mm3 (4.6-6.2); White Blood Count 10.1 K/mm3 (4.4-11.0)
[2021-12-14 11:01] LABS: ALB/GLOB Ratio 0.8 RATIO (0.9-2.4); AST(SGOT) 26 U/L (15-37); Alanine Aminotransfer ALT/SGPT 70 U/L (16-61); Albumin, Serum 3.8 g/dL (3.2-5.0); Alkaline Phosphatase 68 U/L (45-117); Anion Gap 6 (5-15); BUN 13 mg/dL (7-18); BUN/Creat Ratio 18.7 RATIO (10-20); Calcium,Total 9.9 mg/dL (8.5-10.1); Chloride 107 mmol/L (98-107); EST Glomerular Filtration Rate 143 mL/min (>60); Est Glom Filt Rate - Afr Amer 173 mL/min (>60); Estimated Creatinine Clearance 162.22 ml/min; Globulin 4.6 g/dL (2.2-4.2); Glucose 102 mg/dL (74-106); Potassium 3.8 mmol/L (3.5-5.1); Protein, Total 8.4 g/dL (6.4-8.2); Sodium Level 138 mmol/L (136-145)
--- NOTE | 2021-12-14 12:05 | RAD_ITS ---
History: Fracture fixation Right calcaneus, 10 views: Findings: 10 fluoroscopic spot views of the right calcaneus obtained in the OR at the time of surgical fixation. Lateral compression plates are in place with multiple screws with satisfactory alignment of the bony fragments. IMPRESSION: As above. at 1545 Reported and signed by: Jeison Parisi MD Electronically Signed: Jeison Parisi MD at 15:43 EST , RAD/Calcaneus min 2 Views
[2021-12-14] MEDS: Bupivacaine Mpf 0.5% 30 ML VIAL (15:11)
[2021-12-14] MEDS: BACITRACIN/POLYMYXIN B 15 GM Tube 1 APPLIC (15:17)
--- NOTE | 2021-12-14 15:56 | OP.PCM_ITS ---
Problems Associated Problem List Diagnoses (1) Calcaneus fracture, right: (2) Crush injury lower leg: (3) Displaced fracture of body of right calcaneus, subsequent encounter for fracture with routine healing: Report of Operation Date of Procedure: 12/14/21 Pre-Operative Diagnosis: Displaced calcaneal fracture right lower extremity Post-Operative Diagnosis: Same Surgery/Procedure Performed:: Open reduction with internal fixation right calcaneal fracture Description of Surgical Findings:: There is noted to be good reduction of the displaced calcaneal fracture with reestablishment of calcaneal height with in rectus alignment with regards to frontal plane. There is noted to be some bleeding, a drain was placed to prevent any postoperative hematoma. Surgeon: Isiah Yang crane mechanic: None (Ari MenezesPJessy. PGY 3) Type of Anesthesia: General and Other (Popliteal block) Drains: 1 flat VASQUEZ drain applied 7 mm Estimated Blood Loss (mL): 50 cc Description of Procedure: Patient suffered a displaced calcaneal fracture when multiple crates filled with approximately 40 gallons of milk were dropped on his right lower extremity crushing his calcaneus. Patient was admitted to the hospital at that time and he did subsequently develop compartment syndrome, fasciotomies were performed to decompress this at this time and he was discharged until a soft tissue envelope and edema would resolve prior to open reduction internal fixation of his calcaneal fracture. Patient was brought back into the operating room placed comfortably in the lateral position, all osseous prominences were offloaded to prevent any compression neuropraxia's or any complications associated with lateral positioning. Patient was induced under general anesthesia, a popliteal block was performed prior to entrance into the operating room. A well-padded thigh tourniquet was applied to the right lower extremity. Right lower extremity was then scrubbed prepped and draped using typical aseptic manner. Right lower extremity was elevated exsanguinated and thigh tourniquet was inflated to 300 mmHg. A lateral extensile incision was drawn using typical technique just anterior to the Achilles tendon extended inferiorly to the plantar calcaneus and then extended distally towards the fifth metatarsal base there was a soft apex or rounded apex. This is incision was made with a 15 blade through the epidermis dermis into subcutaneous tissue. This incision was full-thickness over the level of the calcaneus to ensure that we elevated a full-thickness periosteal flap. Blunt dissection was taken elsewhere to prevent any injury to deep or superficial neurovascular structures. Any bleeders were identified and cauterized at this time. Full-thickness flap was then dissected off of the lateral calcaneal wall to gain exposure to lateral calcaneus. Dissection was taken through the level of the calcaneal fibular ligament and the peroneal tendons were extended within the periosteal flap to prevent any injury to these as well the entire lateral wall of the calcaneus was exposed as well as the posterior middle and anterior facets of the subtalar joint. No touch technique was used to retract this full-thickness flap with 0.062 K wires which were extended into the distal fibula lateral talus and lateral cuboid. At this time fracture line could be visualized along the mid aspect of the body of the calcaneus the anterior and posterior tuber. There is noted to be significant shortening of the calcaneus as well as widening related to the initial injury. There is noted to be varus alignment of the calcaneus at this time. The fracture line was then dissected out and cleared of any interposing debris and flushed with copious amounts of normal sterile saline. Next a large Steinmann pin was placed from lateral to medial through the posterior calcaneal tuber. It was then distracted posteriorly and inferiorly to allow for reduction of the fracture line the calcaneus was then taken out of varus alignment with manual reduction and placed into slightly valgus position and pin from posterior to anterior with another Steinmann pin in this alignment additional reduction was made with [id number] reduction forceps to help maintain the frontal plane open reduction. Next a percutaneous Arthrex plate was applied using manufactures guidelines using a combination of locking and nonlocking screws. A total of 7 screws were placed. Multiple fluoroscopic imaging was performed to confirm hardware placement and maintenance of reduction after temporary fixation was removed. This included reduction of the calcaneal frontal plane malalignment on calcaneal axial imaging as well as lateral imaging of the foot and mortise views of the ankle. Once positioning and hardware placement was confirmed the tourniquet was let down tourniquet time was noted to be less than 2 hours. There is noted to be some bleeding to the site however no obvious bleeder could be identified. Decision for a 7 mm flat VASQUEZ drain to be applied to the surgical site was made and this was applied the full-thickness flap was then flushed with copious amounts of normal saline sterile saline and closed using 2- 0 Vicryl deep suture technique. Followed by vertical mattress to skin closure with 3-0 nylon. The incision was then cleansed and dressed with bacitracin Adaptic 4 x 4's ABD pads and a well-padded modified Jacobo posterior splint. Patient was tolerated procedure and anesthesia well in apparent satisfactory condition was transferred to PACU with vital signs and vascular status intact all digits for further monitoring prior to discharge. Patient will follow up on Friday at which time we will likely remove his drain. No other complications noted at this time. Grafts/Implants Used: Arthrex percutaneous plate with 6 locking screws, 1 cortical screw Complications None Admit VTE Documentation VTE Present on Admission: Yes VTE Mechan Device Prophylaxis: SCD's
[2021-12-14] MEDS: oxyCODONE 5 MG Tablet PO (17:43)
== END 2021-12-14 23:59 | disposition home or self-care (01) ==
LOC: SDC 09:59 → AC 09:59
PROVIDERS: Referring Provider Podiatrist; Visit Provider Podiatrist
PROC: (CPT 28415; principal; 2021-12-14 11:10)
DX: S92.011A Displaced fracture of body of right calcaneus, initial encounter for closed fracture (principal)
CPT/HCPCS: 28415; 73650; 76000; 80053; 85027; 87426; 93005; C1713; J7120; J2405

== ENCOUNTER 2021-12-15 12:07 | Inpatient (IN) | payer OTHER, SELFPAY ==
[2021-12-15 12:09] VITALS: BP 141/88; PULSE 113; RESP 22; TEMP 36.1; O2SAT 94; BMI 36.6
[2021-12-15 12:11] VITALS: BP 141/88; PULSE 113; RESP 22; TEMP 36.1; O2SAT 94
--- NOTE | 2021-12-15 12:37 | EDS_ITS ---
HPI History of Present Illness Chief Complaint: Lower Extremity Injury Narrative Narrative: Patient present secondary to uncontrolled postop pain. Patient suffered a right calcaneal fracture in November 29. He was admitted for observation at that time and developed compartment syndrome requiring a trip to the OR. Yesterday he underwent ORIF of the right calcaneus. Patient is currently on oxycodone at home. Pain medications were adjusted this morning by podiatry over the phone, but when pain was not well controlled he presented to the emergency room. [facility] Medical History Alcohol use Walker as ambulation aid Home Medications ibuprofen 800 mg PO Q8H #30 tab 12/02/21 [Rx Last Taken Unknown] acetaminophen [Acetaminophen Extra Strength] 1,000 mg PO Q6H PRN 12/13/21 [History Last Taken Unknown] ondansetron 4 mg PO Q8H PRN #14 tab 12/14/21 [Rx Last Taken Unknown] oxycodone 5 mg PO Q4H PRN 7 Days #42 cap 12/14/21 [Rx Last Taken Unknown] Allergy/AdvReac Type Severity Reaction Status Date / Time No Known Allergies Allergy Verified 12/15/21 12:08 Surgical History Hx of foot surgery Social History Smoking Status: Never smoker ROS ROS ED Constitutional Constitutional ED: Denies chills or fever(s) Eyes Eyes: Denies change in vision ENT ENT ED: Denies sore throat Cardiovascular Cardiovascular: Denies chest pain Respiratory/Chest Respiratory/Chest: Denies cough or dyspnea Gastrointestinal Gastrointestinal: Denies abdominal pain, nausea or vomiting Musculoskeletal Musculoskeletal: Reports arthralgias; Denies back pain or neck pain Integumentary Denies rash Neurologic Neurologic: Reports paresthesias Allergic/Immunologic Allergic/Immunologic ED: Denies urticaria EXAM Physical Exam Const Vital Signs: 12/15/21 12:09 12/15/21 12:11 12/15/21 13:23 Temperature 96.9 F L 96.9 F L Temperature Source Temporal Temporal Pulse Rate 113 H 113 H 85 Respiratory Rate 22 H 22 H 13 Blood Pressure 141/88 H 141/88 H 113/81 H Blood Pressure Mean 105 105 91 Pulse Ox 94 94 92 Oxygen Delivery Method Room Air Room Air Room Air Positive well nourished and well developed General Appearance ED: well developed HEENT Reports moist mucous membranes Eyes PERRL and EOMs intact bilaterally Neck supple Chest Wall inspection of chest normal and palpation of chest normal Resp normal respiratory effort and clear to auscultation bilaterally Cardio regular rate and regular rhythm GI non-tender Palpation: soft Extremity Extremity Narrative: Right lower extremity in posterior splint. Good cap refill in the toes distally. Sensation intact. Neuro oriented x3 Sensorium / Orientation: alert MDM MDM MDM Narrative Medical decision making narrative: Patient given 1 mg of IV Dilaudid for pain control. Treatment and Re-Evaluation Comments:: Repeat evaluation patient resting more comfortably. Oxygen saturations are marginal when he falls asleep. He easily awakens and sats go up into the mid 90s. Patient is discussed with Dr. Crews. With the degree of postop pain patient having, he will be admitted overnight for better pain control. Discharge Plan Triage Chief Complaint: Lower Extremity Injury ED Provider: Shy Jacobs Dx/Rx/DC Orders Clinical Impression: Post-op pain Primary Care Provider: Care Physician,No Primary Disposition Disposition: Acute Care Hospital [facility]
[2021-12-15] MEDS: Ondansetron 4 MG/2 ML Vial IV (12:50)
[2021-12-15] MEDS: HYDROmorphone 1 MG/ML Syringe IV ×2 (12:51→19:31)
[2021-12-15 13:23] VITALS: BP 113/81; PULSE 85; RESP 13; O2SAT 92
[2021-12-15 14:15] VITALS: BP 119/82; PULSE 88; RESP 18; TEMP 36.6; O2SAT 98
--- NOTE | 2021-12-15 14:22 | NURSING ---
med surg obs post op pain annabel
--- NOTE | 2021-12-15 14:53 | HP.PCM_ITS ---
HPI - General General Date of Admission: 12/15/21 HPI Narrative JOSE EDUARDO JACINTO, is a 26 M who presents to the ER due to uncontrolled right heel pain. He has fractured calcaneus and underwent ORIF yesterday. He did not sleep well last night. He was in 10/10 pain this morning. He called and I spoke with him - he tried to increase his pain medication and also add Tylenol however he continued to have significant pain so he came to the hospital. In the ER he was given Dilaudid which helped significantly. He has no fever, chills, nausea or vomiting. He denies falling on foot after surgery, he denies any injury to site after surgery. He relates otherwise he is doing well. He has no other complaints. [facility] Medical History Alcohol use Walker as ambulation aid Home Medications ibuprofen 800 mg PO Q8H #30 tab 12/02/21 [Rx Last Taken Unknown] acetaminophen [Acetaminophen Extra Strength] 1,000 mg PO Q6H PRN 12/13/21 [History Last Taken Unknown] ondansetron 4 mg PO Q8H PRN #14 tab 12/14/21 [Rx Last Taken Unknown] oxycodone 5 mg PO Q4H PRN 7 Days #42 cap 12/14/21 [Rx Last Taken Unknown] Allergy/AdvReac Type Severity Reaction Status Date / Time No Known Allergies Allergy Verified 12/15/21 12:08 Surgical History Hx of foot surgery Social History Smoking Status: Never smoker ROS Constitutional Constitutional: Denies body ache(s), chills, fever(s) or malaise Respiratory/Chest Respiratory/Chest: Denies change in mental status, chest tightness or shortness of breath at rest Vital Signs Vital Signs Vital Signs: 12/15/21 12:09 12/15/21 12:11 12/15/21 13:23 Temperature 96.9 F L 96.9 F L Temperature Source Temporal Temporal Pulse Rate 113 H 113 H 85 Respiratory Rate 22 H 22 H 13 Blood Pressure 141/88 H 141/88 H 113/81 H Blood Pressure Mean 105 105 91 Pulse Ox 94 94 92 Oxygen Delivery Method Room Air Room Air Room Air 12/15/21 14:15 Temperature 97.9 F Temperature Source Temporal Pulse Rate 88 Respiratory Rate 18 Blood Pressure 119/82 H Blood Pressure Mean 94 Pulse Ox 98 Oxygen Delivery Method Room Air Weight Weight: 115.666 kg Body Mass Index (BMI) 36.6 Physical Exam Const alert, oriented x3 and no apparent distress Extremity Extremity Narrative: CFT < 2 seconds to all toes, sensation intact to all toes, he is able to wiggle all toes - all right foot. No calf pain bilateral. No suspicion for DVT or infection right foot/ankle/leg. No evidence of ischemia to the right foot. Assessment & Plan Assessment/Plan (1) Calcaneus fracture, right: QUALIFIERS: Encounter type: initial encounter Calcaneus location: body Fracture type: closed Fracture alignment: displaced Qualified Code(s): S92.011A - Displaced fracture of body of right calcaneus, initial encounter for closed fracture (2) Pain in right foot: PLAN: Evaluation performed. Patient with uncontrolled pain at home, it is medically necessary for patient to be admitted for post operative pain control. He was started on IV Dilaudid 1mg q 3 hours, along with Tylenol, and Ibuprofen for post op pain control. No weightbearing right foot, keep right foot elevated at all times. Keep dressing clean, dry and intact. I did remove the splint which did help relieve some of his pain as well. DVT prophylaxis: Mechanical.
[2021-12-15 15:40] VITALS: BMI 36.6
[2021-12-15] MEDS: Ibuprofen 400 MG Tablet PO ×2 (16:36→20:54)
[2021-12-15] MEDS: Acetaminophen 325 MG Tablet 650 MG PO (19:15)
[2021-12-15] MEDS: 0.9% Saline Lock 10 ML Syringe IV (19:30)
[2021-12-15 20:45] VITALS: BP 131/74; PULSE 99; RESP 18; TEMP 36.7; O2SAT 93
[2021-12-16] MEDS: HYDROmorphone 1 MG/ML Syringe IV ×4 (00:01→09:48)
[2021-12-16 03:00] VITALS: BP 134/78; PULSE 94; RESP 16; TEMP 36.7; O2SAT 97
[2021-12-16] MEDS: 0.9% Saline Lock 10 ML Syringe IV ×4 (03:34→11:29)
[2021-12-16] MEDS: Ibuprofen 400 MG Tablet PO ×4 (03:34→21:27)
[2021-12-16 09:50] VITALS: BP 128/86; PULSE 102; RESP 18; TEMP 36.8; O2SAT 98
[2021-12-16] MEDS: HYDROmorphone 0.5 MG/0.5 ML SYRINGE IV (11:29)
--- NOTE | 2021-12-16 11:42 | PCM.PROGNOTE ---
Subjective Subjective This 26-year-old male was seen bedside day 2 postoperative from a right calcaneal fracture ORIF, he denies any fever chills nausea vomiting chest pain calf pain shortness of breath. His pain is a 6 out of 10 currently, but is manageable with IV pain medication. Patient has been voiding urine and positive bowel movement. Patient has no other complaints at this time. Objective Data Objective Data Vital Signs: Vital Signs Temp Pulse Resp BP Pulse Ox 98.2 F 102 H 18 128/86 H 98 12/16/21 09:50 12/16/21 09:50 12/16/21 09:50 12/16/21 09:50 12/16/21 09:50 Oxygen Delivery Method Room Air Weight: 115.8 kg Body Mass Index (BMI) 36.6 Intake & Output: Intake and Output for Last 24 Hours 12/14/21 12/15/21 12/16/21 23:59 23:59 23:59 Intake Total 600 / 1000 400 / 400 Output Total 215 / 847 637 / 637 Balance 385 / 153 -237 / -237 Physical Exam Const alert, oriented x3 and no apparent distress Extremity Extremity Narrative: Neurovascular status intact to right lower extremity. Incision lateral extensile to dorsal forefoot and 1 medial foot appear to be well approximated with intact sutures. No signs of infection. Vascularity to the lateral extensile incision no flap is intact there is good color. There is significant right lower extremity edema. No pain with calf squeeze. Drain is intact minimal drainage noted. Assessment & Plan Assessment/Plan (1) Calcaneus fracture, right: QUALIFIERS: Encounter type: initial encounter Calcaneus location: body Fracture type: closed Fracture alignment: displaced Qualified Code(s): S92.011A - Displaced fracture of body of right calcaneus, initial encounter for closed fracture (2) Pain in right foot: PLAN: Evaluation performed. Patient's pain is improving since dressing change, will observe overnight. Continue IV Dilaudid every 4 hours as needed. We will try to transition to p.o. pain medication tonight. We will reapply posterior splint tomorrow and discharged home for nonweightbearing on p.o. pain medication. Ordered p.o. Zofran as needed for nausea. Ordered p.o. oxycodone 5 mg every 4 hours as needed moderate pain. DC IV Dilaudid tonight. Right lower extremity was redressed with Adaptic dry sterile dressing, posterior splint was left off we will plan to reapply tomorrow.
[2021-12-16] MEDS: Acetaminophen 325 MG Tablet 650 MG PO (13:17)
[2021-12-16] MEDS: oxyCODONE 5 MG Tablet PO ×3 (13:17→21:27)
[2021-12-16 16:00] VITALS: BP 135/83; PULSE 94; RESP 16; TEMP 36.5; O2SAT 95
[2021-12-16 20:18] VITALS: BP 142/82; PULSE 106; RESP 18; TEMP 36.9; O2SAT 96
[2021-12-17] MEDS: oxyCODONE 5 MG Tablet PO ×2 (02:55→09:19)
[2021-12-17] MEDS: Ibuprofen 400 MG Tablet PO ×2 (02:55→09:19)
[2021-12-17 03:00] VITALS: BP 114/71; PULSE 92; RESP 18; TEMP 36.6; O2SAT 97
--- NOTE | 2021-12-17 07:48 | PCM.PROGNOTE ---
Subjective Subjective 26-year-old male seen bedside pain significantly improved today controlled with p.o. pain medication. Patient denies any fever chills nausea vomiting chest pain calf pain shortness of breath. Patient voiding urine and having bowel movements. No other complaints overnight. Objective Data Objective Data Vital Signs: Vital Signs Temp Pulse Resp BP Pulse Ox 97.8 F 92 18 114/71 97 12/17/21 03:00 12/17/21 03:00 12/17/21 03:00 12/17/21 03:00 12/17/21 03:00 Oxygen Delivery Method Room Air Weight: 115.8 kg Body Mass Index (BMI) 36.6 Intake & Output: Intake and Output for Last 24 Hours 12/15/21 12/16/21 12/17/21 23:59 23:59 23:59 Intake Total 600 / 1000 1500 / 1900 400 / 400 Output Total 215 / 847 637 / 637 Balance 385 / 153 863 / 1263 400 / 400 Physical Exam Const alert, oriented x3 and no apparent distress Extremity Extremity Narrative: Neurovascular status intact to right lower extremity. Incision lateral extensile to dorsal forefoot and 1 medial foot appear to be well approximated with intact sutures. No signs of infection. Vascularity to the lateral extensile incision no flap is intact there is good color. There is significant right lower extremity edema. No pain with calf squeeze. Drain is intact minimal drainage noted. Assessment & Plan Assessment/Plan (1) Calcaneus fracture, right: QUALIFIERS: Encounter type: initial encounter Calcaneus location: body Fracture type: closed Fracture alignment: displaced Qualified Code(s): S92.011A - Displaced fracture of body of right calcaneus, initial encounter for closed fracture (2) Pain in right foot: PLAN: Evaluation performed. Patient's pain is well controlled, will plan for d/c today He will continue nonweightbearing to his right lower extremity assisted by crutches and will follow up in our office in a week and a half for suture removal. He will continue to take the same pain medication that he was prescribed upon his discharge from the PACU on Friday.
[2021-12-17 08:16] VITALS: BP 132/81; PULSE 85; RESP 18; TEMP 36.7; O2SAT 98
--- NOTE | 2021-12-17 09:13 | CASEMGMT ---
FRANCESCA HART Assessment: Face to Face with pt for initial transition planning/care coordination assessment. RN HAILEY introduced self and role at [facility], pt voices understanding and consents to assessment. Pt is A/O x4 and answers all questions appropriately at this time. Pt lying in bed with at bedside. Care providers, pharmacy, and demographics verified/updated. Admitting Dx: painful calcaneus fx PCP:Pt does not currently have a PCP. He states he has a local healthcare directory pamphlet given from admission from surgery. Specialists:shobha Yang [facility] Insurance: [facility] [place] Prescription Benefit: Pt is unsure LW/HPOA: Pt denies having a LW/DPOA and denies need for info regarding AD. LNOK: Reina Polk, ; César Sloan, father Living Arrangements: Pt lives with in a two story house. They rent the upstairs so pt is on main level. He has 3 steps to enter with a rail. Transportation: Pt drove self prior to surgery. Pt will transport pt to medical appts until pt able to drive again. DME/HHC/SNF: Pt has a FWW and crutches at home. Pt denies hx of HHC or SNF stays. Pt states no concerns with going home at time of dc. He states he will have this cast for 2-3 weeks and then pt will have a hard cast and boot. Pt states no further concerns/needs. CM to follow. Advised pt to ask CM if any further question/concerns/needs arise, voices understanding. Pt Goal: Home Plan: Home with assistance.
--- NOTE | 2021-12-17 09:36 | DS.PCM_ITS ---
Providers Date of Admission: 12/15/21 Primary Care Physician: Didi Primary Care Phys Reason For Visit: PAINFUL CALCANEUS FRACTURE Diagnosis Discharge Diagnosis (1) Calcaneus fracture, right: Status: Acute Code(s): S92.001A - Unspecified fracture of right calcaneus, initial encounter for closed fracture Qualifiers: Encounter type: initial encounter Calcaneus location: body Fracture type: closed Fracture alignment: displaced Qualified Code(s): S92.011A - Displaced fracture of body of right calcaneus, initial encounter for closed fracture (2) Pain in right foot: Status: Acute Code(s): M79.671 - Pain in right foot Medications at Discharge Home Medications ibuprofen 800 mg PO Q8H #30 tab 12/02/21 acetaminophen [Acetaminophen Extra Strength] 1,000 mg PO Q6H PRN 12/13/21 ondansetron 4 mg PO Q8H PRN #14 tab 12/14/21 oxycodone 5 mg PO Q4H PRN 7 Days #42 cap 12/14/21 Hospital Course Operations None Summary of Care Provided Hospital Course: Patient was seen in ED 1 day post op and admitted for intractable post operative pain. Patient's pain improve with changing of splint. On Friday12/16/21, his dressing was changed and the drain was removed. Patient noted significant improvement in pain once htis was performed. His pain was 3/10 today. He was re-dressed with a sterile dressing and splint was re- applied. He will follow up in 1.5 weeks for possible suture removal. Weight / BMI Weight Weight: 115.8 kg Body Mass Index (BMI) 36.6 Meaningful Use Info Meaningful Use Diagnoses (Choose all that apply): None applicable Discharge Plan Admission Admit Date/Time: 12/15/21 14:02 Attending Provider: Jorge Luis Crews Primary Care Provider: Care Physician,No Primary Instructions Additional Instructions / Restrictions: same instructions from post op discharge Discharge Orders/Prescriptions Prescriptions: Continued ibuprofen 800 mg tablet 800 mg PO Q8H Qty: 30 RF: 0 acetaminophen [Acetaminophen Extra Strength] 500 mg Tablet 1,000 mg PO Q6H PRN (Reason: Pain) RF: 0 oxycodone 5 mg capsule 5 mg PO Q4H PRN (Reason: pain) 7 Days Qty: 42 RF: 0 ondansetron 4 mg tablet,disintegrating 4 mg PO Q8H PRN (Reason: nausea and vomiting) Qty: 14 RF: 0 Referrals / Follow Up: Isiah Yang DPM [STAFF PHYSICIAN] - 12/28/21 Care Physician,No Primary [Primary Care Provider] - Disposition Disposition (needs filled in before D/C Order can be placed): Home, Self Care
== END 2021-12-17 09:45 | disposition home or self-care (01) | DRG 948 ==
LOC: ED 12:21 → MS3 14:17
PROVIDERS: Admitting Provider Podiatrist; Emergency Provider Emergency Medicine; Visit Provider Podiatrist
DX: G89.18 Other acute postprocedural pain (principal); S92.011A Displaced fracture of body of right calcaneus, initial encounter for closed fracture
CPT/HCPCS: 97162; 99251; 99285; A4216; G0463; J2405

== ENCOUNTER 2021-12-18 12:40 | Emergency (ER) | payer OTHER, SELFPAY ==
[2021-12-18 12:40] VITALS: BP 173/108; PULSE 96; RESP 15; TEMP 36; O2SAT 99; BMI 36.6
--- NOTE | 2021-12-18 13:38 | CT_ITS ---
STUDY: CTA CHEST REASON FOR EXAM: Male, 26 years old. Shortness of breath. Recent calcaneal surgery. RADIATION DOSAGE (If Supplied By Facility): CTDIvol = ( 12.63 ) mGy, DLP = ( 582.53 ) mGycm TECHNIQUE: The examination was performed with the intravenous administration of IV 100mL Isovue-370. Post-processing of the angiographic images was performed, with multiplanar reformation and 3D reconstruction. Individualized dose optimization techniques were used for this CT. COMPARISON: None. FINDINGS: Normal enhancement of the main pulmonary artery and right and left pulmonary arteries. Normal enhancement of the bilateral peripheral pulmonary arteries. There is no demonstrated pulmonary embolism. Normal thoracic aorta and visualized great vessels. There is no demonstrated aortic dissection. Normal heart and pericardium. Normal mediastinum. Normal hilar regions. Normal visualized trachea and bronchi. The lungs are well expanded. Mild degree of increased markings with area of the infiltration in the anterior lateral aspect of the right lower lung. This may represent either early infiltrate versus atelectasis. Normal pleura. Normal chest wall structures. Normal osseous structures. Fatty infiltration of the liver. CT/CTA Chest W/WO Contrast IMPRESSION: Focal area of increased markings with areas of confluence in the anterior lateral aspect of the right lower lobe. This may represent either atelectasis and/or early infiltrate. Electronically Signed: Lex Davis MD at 14:27 EST ,
--- NOTE | 2021-12-18 13:39 | EDS_ITS ---
HPI History of Present Illness Chief Complaint: Shortness of Breath Detail of Chief Complaint: Shortness of breath started today Informant: patient Narrative Narrative: Patient presents to the emergency department complaint shortness of breath that he noticed today. Patient states that he started feeling like he could not get a full breath earlier in the day and then when he try to eat he started gagging because he felt like he needed to clear the food so he could breathe. He denies any chest pain. He denies significant cough. He denies fevers. Patient gives me history of recent surgery on his right foot and ankle from a work-related injury. Patient had surgery 5 days ago. After surgery patient went home and then had intractable pain so he came back to the hospital and was admitted for 2 days for pain control and discharged again yesterday. Patient takes oxycodone for pain as well as ibuprofen. Patient denies any increased swelling to his right lower extremity although he does have a splint on his leg. No history of PE or DVT. Patient does have history of anxiety but has not been bothered by it in about 4 5 years. Prior similar symptoms: No PFSH PFSH Medical History Alcohol use Walker as ambulation aid Home Medications ibuprofen 800 mg PO Q8H #30 tab 12/02/21 [Rx Last Taken Unknown] acetaminophen [Acetaminophen Extra Strength] 1,000 mg PO Q6H PRN 12/13/21 [History Last Taken Unknown] ondansetron 4 mg PO Q8H PRN #14 tab 12/14/21 [Rx Last Taken Unknown] oxycodone 5 mg PO Q4H PRN 7 Days #42 cap 12/14/21 [Rx Last Taken Unknown] doxycycline monohydrate 100 mg PO BID #20 capsule 12/18/21 [Rx Last Taken Unknown] Allergy/AdvReac Type Severity Reaction Status Date / Time No Known Allergies Allergy Verified 12/15/21 12:08 Surgical History Hx of foot surgery Social History Smoking Status: Never smoker ROS ROS ED Constitutional Constitutional ED: Reports systems reviewed and no addt'l complaints, except as documented; Denies body ache(s), change in weight or chills Eyes Eyes: Denies acute decrease in peripheral vision, change in vision, double vision or loss of vision ENT ENT ED: Reports none; Denies ear pain, lip swelling, loss taste/smell, neck pain, otalgia or sore throat Cardiovascular Cardiovascular: Reports none; Denies abdominal pain, chest pain with activity, leg edema, lightheadedness, palpitations, rapid heart rate or syncope Respiratory/Chest Respiratory/Chest: Reports none and dyspnea; Denies change in mental status, dry cough, hemoptysis, shortness of breath at rest or shortness of breath with exertion Gastrointestinal Gastrointestinal: Reports none; Denies abdominal pain, change in stool character, diarrhea, hematemesis, hematochezia, melena, rectal bleeding or vomiting Genitourinary Genitourinary ED: Reports none; Denies abdominal discomfort, anuria, dysuria, genital pain or polyuria Musculoskeletal Musculoskeletal: Reports none; Denies arthralgias, back pain, difficulty walking, extremity pain, muscle weakness or myalgias Integumentary Reports none; Denies abscess or rash Neurologic Neurologic: Reports none; Denies abnormal gait, confusion, focal weakness, frequent falls, headache(s), loss of vision, numbness, paresthesias, radicular pain, vertigo or weakness Psychiatric Psychiatric: Reports systems reviewed and no addt'l complaints, except as docum ented and none; Denies behavioral changes, confusion, difficulty concentrating, hallucinations, suicidal ideation, tactile hallucinations or visual hallucinations Endocrine Endocrinology: Denies none, cold intolerance, excessive sweating, fatigue or heat intolerance Hematologic/Lymphatic Hematologic/Lymphatic: Reports none; Denies anemia, easy bleeding or easy bruising Allergic/Immunologic Allergic/Immunologic ED: Denies as per HPI, none, lip swelling, mouth swelling, throat swelling, tongue swelling or hives EXAM Physical Exam Const Vital Signs: 12/18/21 12:40 12/18/21 13:55 12/18/21 14:46 Temperature 96.8 F L Temperature Source Temporal Pulse Rate 96 Respiratory Rate 15 16 Respiratory Effort Short of Breath Blood Pressure 173/108 H Blood Pressure Mean 129 Pulse Ox 99 Oxygen Delivery Method Room Air Positive well nourished and well developed General Appearance ED: well developed and NAD HEENT Reports TM's clear and moist mucous membranes normocephalic and atraumatic; Negative for trauma or tenderness Tympanic Membrane ED: Yes TM's clear Eyes PERRL and EOMs intact bilaterally General Eye ED: Negative for pale conjunctiva or scleral icterus Neck no lymphadenopathy, supple and no JVD General: Negative for tenderness Chest Wall inspection of chest normal and palpation of chest normal Chest: Negative for tenderness Resp normal respiratory effort and clear to auscultation bilaterally Effort and Inspection: Negative for respiratory distress or pain with movement Auscultation: Negative for rhonchi, wheezes or diminished lung sounds Cardio regular rate, regular rhythm, S1 normal heart sound, S2 normal heart sound and no murmurs Peripheral Pulses: pulses 2+ throughout GI normal to inspection, nondistended, normoactive bowel sounds, soft to palpation, non-tender, non-distended and no masses Back/Spine no CVA tenderness and no thoracic nor lumbar tenderness Extremity normal to inspection General Extremety ED: Negative for edema General Extremity: Negative for edema Neuro oriented x3, CN's II-XII intact bilaterally, no sensory deficits noted and gait normal Sensorium / Orientation: awake, alert, oriented to person, oriented to place and oriented to time Motor Exam: strength 5/5 throughout and strength abnormal Psych mental status grossly normal Skin no rashes or lesions noted and no wounds MDM MDM MDM Narrative Medical decision making narrative: Patient had an IV line established on arrival and he had a CTA of the chest that was negative for PE. He did have a right lower lobe area of confluence which could represent either atelectasis and/or early infiltrate. At this point patient will be started on doxycycline and given a albuterol MDI. Patient advised to return if increasing shortness of breath or condition should worsen anyway. Patient to follow-up with his primary care physician in 3 to 5 days. Lab Data Attestation: I reviewed the patient's lab results. Labs: Laboratory Results - last 24 hr 12/18/21 12/18/21 13:52 13:52 WBC 8.1 RBC 4.38 L Hgb 13.2 Hct 38.9 L MCV 88.8 MCH 30.1 MCHC 33.9 RDW Std Deviation 44.3 H RDW Coeff of Mark 13.7 Plt Count 396 MPV 10.0 Sodium 137 Potassium 3.7 Chloride 105 Carbon Dioxide 27.0 Anion Gap 5 BUN 16 Creatinine 0.65 L Estim Creat Clear Calc 174.70 Est GFR (MDRD) Af Amer 188 Est GFR (MDRD) Non-Af 156 BUN/Creatinine Ratio 24.7 H Glucose 95 Calcium 9.5 Radiography Diagnostic Testing: Clinical Impression(s) from Imaging Studies Chest CTA 12/18/21 13:38 IMPRESSION: Focal area of increased markings with areas of confluence in the anterior lateral aspect of the right lower lobe. This may represent either atelectasis and/or early infiltrate. Electronically Signed: Lex Davis MD at 14:27 EST , Discharge Plan Triage Chief Complaint: Shortness of Breath ED Provider: Yara Jones Dx/Rx/DC Orders Clinical Impression: Acute dyspnea Instructions: ED Dyspnea Prescriptions: New doxycycline monohydrate 100 MG capsule 100 mg PO BID Qty: 20 RF: 0 No Action ibuprofen 800 mg tablet 800 mg PO Q8H Qty: 30 RF: 0 acetaminophen [Acetaminophen Extra Strength] 500 mg Tablet 1,000 mg PO Q6H PRN (Reason: Pain) RF: 0 oxycodone 5 mg capsule 5 mg PO Q4H PRN (Reason: pain) 7 Days Qty: 42 RF: 0 ondansetron 4 mg tablet,disintegrating 4 mg PO Q8H PRN (Reason: nausea and vomiting) Qty: 14 RF: 0 Primary Care Provider: Care Physician,No Primary Referrals: Louis Ridley MD [STAFF PHYSICIAN] - 3-5 Days Care Physician,No Primary [Primary Care Provider] - Disposition Disposition: Home, Self Care
[2021-12-18 13:58] LABS: Hematocrit 38.9 % (40-54); Hemoglobin 13.2 g/dL (13.0-16.5); Mean Corp Hgb Conc 33.9 g/dL (32-36); Mean Corpuscular Hgb 30.1 pg (27.0-32.0); Mean Corpuscular Volume 88.8 fL (80-94); Platelet Count 396 K/mm3 (150-450); RBC Distribution Width CV 13.7 % (11.6-14.6); RBC Distribution Width SD 44.3 fl (35.1-43.9); Red Blood Count 4.38 M/mm3 (4.6-6.2); White Blood Count 8.1 K/mm3 (4.4-11.0)
[2021-12-18 14:10] LABS: Anion Gap 5 (5-15); BUN 16 mg/dL (7-18); BUN/Creat Ratio 24.7 RATIO (10-20); Calcium,Total 9.5 mg/dL (8.5-10.1); Chloride 105 mmol/L (98-107); Creatinine, Serum 0.65 mg/dL (0.70-1.30); EST Glomerular Filtration Rate 156 mL/min (>60); Est Glom Filt Rate - Afr Amer 188 mL/min (>60); Glucose 95 mg/dL (74-106); Potassium 3.7 mmol/L (3.5-5.1); Sodium Level 137 mmol/L (136-145)
[2021-12-18 14:46] VITALS: RESP 16
[2021-12-18] MEDS: Doxycycline 100 MG CAPSULE PO (15:07)
--- NOTE | 2021-12-19 03:27 | ED.RN ---
checked for workers comp paperwork
== END 2021-12-18 15:16 | disposition home or self-care (01) ==
PROVIDERS: Emergency Provider Emergency Medicine; Visit Provider Emergency Medicine
DX: R06.00 Dyspnea, unspecified (principal); F41.9 Anxiety disorder, unspecified; Z79.899 Other long term (current) drug therapy
CPT/HCPCS: 71275; 80048; 85027; 99283; Q9967; A4216

== ENCOUNTER 2021-12-29 14:00 | Emergency (ER) | payer OTHER, SELFPAY ==
[2021-12-29 14:01] VITALS: BP 151/90; PULSE 115; RESP 20; TEMP 36.4; O2SAT 96; BMI 36.6
--- NOTE | 2021-12-29 14:25 | EKG12_ITS ---
Test Reason : SOB Blood Pressure : / mmHG Vent. Rate : 106 BPM Atrial Rate : 106 BPM P-R Int : 138 ms QRS Dur : 084 ms QT Int : 326 ms P-R-T Axes : 052 069 059 degrees QTc Int : 433 ms Sinus tachycardia Otherwise normal ECG Confirmed by ELLYN TRAN, VIKASH ([id number]), film or videotape editor MILA MARSH ([id number]) on 12/31/2021 11:39:58 A M Referred By: JAMIA Confirmed By:VIDYA RAGLAND MD
--- NOTE | 2021-12-29 14:25 | CT_ITS ---
STUDY: CTA CHEST REASON FOR EXAM: Male, 26 years old. Chest pain RADIATION DOSAGE (If Supplied By Facility): CTDIvol = ( 16.23 ) mGy, DLP = ( 524.71 ) mGycm TECHNIQUE: The examination was performed with the intravenous administration of IV 100mL Isovue-370. Post-processing of the angiographic images was performed, with multiplanar reformation and 3D reconstruction. Individualized dose optimization techniques were used for this CT. COMPARISON: None. FINDINGS: 22 Normal enhancement of the main pulmonary artery and right and left pulmonary arteries. Normal enhancement of the bilateral peripheral pulmonary arteries. There is no demonstrated pulmonary embolism. Normal thoracic aorta and visualized great vessels. There is no demonstrated aortic dissection. Normal heart and pericardium. Normal mediastinum. Normal hilar regions. Normal visualized trachea and bronchi. The lungs are well expanded. There are no pulmonary infiltrates. There are no pleural effusions. Normal chest wall structures. Normal osseous structures. Normal visualized upper abdomen. CT/CTA Chest W/WO Contrast IMPRESSION: 1. No evidence of pulmonary embolism or aortic dissection. 2. No focal acute infiltrate or pleural effusions. Electronically Signed: Cesar Stovall MD at 15:15 EDT ,
--- NOTE | 2021-12-29 14:29 | ED.VIS.DYS ---
HPI History of Present Illness Chief Complaint: Shortness of Breath Narrative Narrative: 26-year-old male presenting with dyspnea on exertion. He states he does have some dyspnea at rest but it is really worse when he exerts himself. He feels like he ran a marathon when he just walks a little bit. Patient reporting right-sided chest pain as well. Patient was seen about 10 days ago in the emergency room for shortness of breath which was similar. He was diagnosed with a right lower lobe pneumonia and has been on doxycycline at that time he was prescribed an inhaler. Patient with recent calcaneal fracture on the right with ORIF about 15 days ago. Patient has no history of DVT/PE. CTA of the chest was performed 10 days ago and was negative for PE. Patient reports that he did not have any fever, chills, cough, body aches. He initially was improving but when his antibiotics stopped he started feeling more short of breath. He is used his inhaler more frequently today. PFSH PFSH Medical History Alcohol use Walker as ambulation aid Home Medications ibuprofen 800 mg PO Q8H #30 tab 12/02/21 [Rx Last Taken Unknown] acetaminophen [Acetaminophen Extra Strength] 1,000 mg PO Q6H PRN 12/13/21 [History Last Taken Unknown] ondansetron 4 mg PO Q8H PRN #14 tab 12/14/21 [Rx Last Taken Unknown] oxycodone 5 mg PO Q4H PRN 7 Days #42 cap 12/14/21 [Rx Last Taken Unknown] Allergy/AdvReac Type Severity Reaction Status Date / Time No Known Allergies Allergy Verified 12/29/21 14:02 Surgical History Hx of foot surgery Social History Smoking Status: Never smoker ROS ROS ED Constitutional Constitutional ED: Denies chills or fever(s) Eyes Eyes: Denies blurry vision or diplopia ENT ENT ED: Denies rhinorrhea or sore throat Cardiovascular Cardiovascular: Reports chest pain Respiratory/Chest Respiratory/Chest: Reports dyspnea and dyspnea on exertion Gastrointestinal Gastrointestinal: Denies abdominal pain, nausea or vomiting Genitourinary Genitourinary ED: Denies dysuria or hematuria Musculoskeletal Musculoskeletal: Denies back pain or neck pain Integumentary Denies rash Neurologic Neurologic: Denies headache(s) or paresthesias Psychiatric Psychiatric: Denies anxiety or depression EXAM Physical Exam Const Vital Signs: 12/29/21 14:01 12/29/21 14:33 12/29/21 14:34 Temperature 97.5 F L Temperature Source Temporal Pulse Rate 115 H Respiratory Rate 20 H Respiratory Effort Short of Breath Respiratory Depth Normal Respiratory Pattern Normal Blood Pressure 151/90 H Blood Pressure Mean 110 Pulse Ox 96 98 Oxygen Delivery Method Room Air Room Air 12/29/21 15:00 12/29/21 16:00 Temperature Temperature Source Pulse Rate 88 88 Respiratory Rate 10 L 10 L Respiratory Effort Respiratory Depth Respiratory Pattern Blood Pressure 122/81 H 117/72 Blood Pressure Mean 94 87 Pulse Ox 96 96 Oxygen Delivery Method Room Air Room Air Positive well nourished General Appearance ED: NAD HEENT Reports moist mucous membranes atraumatic Eyes PERRL and EOMs intact bilaterally General Eye ED: Negative for pale conjunctiva or scleral icterus Resp normal respiratory effort Cardio regular rhythm Rate: tachycardic Neuro oriented x3 and CN's II-XII intact bilaterally Sensorium / Orientation: alert Motor Exam: strength 5/5 throughout Psych mental status grossly normal Thought Process: normal thought process MDM MDM MDM Narrative Medical decision making narrative: Patient presenting with shortness of breath on exertion. He states he was previously treated with doxycycline and improved and then felt short of breath again today. He states it feels like he is running a marathon. I obtained an EKG which on my interpretation shows sinus tachycardia with a ventricular to 106 bpm without sign of ischemic change or dysrhythmia. CBC and BMP are unremarkable with exception of a potassium of 3.4. High-sensitivity troponin is 4. I obtained a CTA due to the patient's history of surgery and right-sided chest pain with shortness of breath on exertion and CTA was negative for PE or infection. Patient's vital signs are stable and he is afebrile. He is not requiring oxygen. He has a negative work-up. I do not believe he needs a delta troponin. Patient counseled on findings and is amenable to discharge home. Impression: 1. Chest pain noncardiac 2. Dyspnea on exertion Lab Data Attestation: I reviewed the patient's lab results. Labs: Laboratory Results - last 24 hr 12/29/21 12/29/21 14:34 14:34 WBC 10.3 RBC 4.78 Hgb 14.3 Hct 41.7 MCV 87.2 MCH 29.9 MCHC 34.3 RDW Std Deviation 44.4 H RDW Coeff of Mark 13.9 Plt Count 384 MPV 10.4 Immature Gran % (Auto) 0.300 Neut % (Auto) 40.3 L Lymph % (Auto) 48.4 H [place] % (Auto) 7.6 Eos % (Auto) 2.9 Baso % (Auto) 0.5 Absolute Neuts (auto) 4.2 Absolute Lymphs (auto) 5.00 H Nucleated RBC % 0 Sodium 138 Potassium 3.4 L Chloride 106 Carbon Dioxide 25.0 Anion Gap 7 BUN 19 H Creatinine 0.68 L Estim Creat Clear Calc 166.99 Est GFR (MDRD) Af Amer 178 Est GFR (MDRD) Non-Af 147 BUN/Creatinine Ratio 28.0 H Glucose 100 Calcium 9.9 Troponin I High Sens 4 Radiography Diagnostic Testing: Clinical Impression(s) from Imaging Studies Chest CTA 12/29/21 14:25 IMPRESSION: 1. No evidence of pulmonary embolism or aortic dissection. 2. No focal acute infiltrate or pleural effusions. Electronically Signed: Cesar Stovall MD at 15:15 EDT , Discharge Plan Triage Chief Complaint: Shortness of Breath ED Provider: Buddy Mcdaniel Dx/Rx/DC Orders Instructions: ED Dyspnea Prescriptions: No Action ibuprofen 800 mg tablet 800 mg PO Q8H Qty: 30 RF: 0 acetaminophen [Acetaminophen Extra Strength] 500 mg Tablet 1,000 mg PO Q6H PRN (Reason: Pain) RF: 0 oxycodone 5 mg capsule 5 mg PO Q4H PRN (Reason: pain) 7 Days Qty: 42 RF: 0 ondansetron 4 mg tablet,disintegrating 4 mg PO Q8H PRN (Reason: nausea and vomiting) Qty: 14 RF: 0 Primary Care Provider: Care Physician,No Primary Referrals: Care Physician,No Primary [Primary Care Provider] - Disposition Disposition: Home, Self Care Discharge Date/Time: 12/29/21 16:30
[2021-12-29] MEDS: Aspirin 81 MG TAB.CHEW 324 MG PO (14:32)
[2021-12-29 14:34] VITALS: O2SAT 98
[2021-12-29] MEDS: 0.9% Normal Saline 1,000 ML 1000 ML IV (14:38)
[2021-12-29 15:00] VITALS: BP 122/81; PULSE 88; RESP 10; O2SAT 96
[2021-12-29 15:17] LABS: Absolute Neutrophil Count 4.2 X10^3/uL (2.0-7.7); Basophil# 0.05 X10^3/uL; Basophil% 0.5 % (0-1); Eosinophils% 2.9 % (0-5); Hematocrit 41.7 % (40-54); Hemoglobin 14.3 g/dL (13.0-16.5); Lymphocyte % 48.4 % (19-41); Mean Corp Hgb Conc 34.3 g/dL (32-36); Mean Corpuscular Hgb 29.9 pg (27.0-32.0); Mean Corpuscular Volume 87.2 fL (80-94); Mean Platelet Vol. 10.4 fl (6.2-12.0); Monocyte# 0.79 X10^3/uL; Monocyte% 7.6 % (0-10); NRBC Flagged by Analyzer 0 % (0-5); Neutrophil # 4.17 X10^3/uL (2.7-7.7); Neutrophil % 40.3 % (47-70); Platelet Count 384 K/mm3 (150-450); RBC Distribution Width CV 13.9 % (11.6-14.6); RBC Distribution Width SD 44.4 fl (35.1-43.9); Red Blood Count 4.78 M/mm3 (4.6-6.2); White Blood Count 10.3 K/mm3 (4.4-11.0)
[2021-12-29 15:48] LABS: Anion Gap 7 (5-15); BUN 19 mg/dL (7-18); Calcium,Total 9.9 mg/dL (8.5-10.1); Chloride 106 mmol/L (98-107); Creatinine, Serum 0.68 mg/dL (0.70-1.30); EST Glomerular Filtration Rate 147 mL/min (>60); Est Glom Filt Rate - Afr Amer 178 mL/min (>60); Estimated Creatinine Clearance 166.99 ml/min; Glucose 100 mg/dL (74-106); Potassium 3.4 mmol/L (3.5-5.1); Sodium Level 138 mmol/L (136-145); Troponin-I HS 4 pg/mL (3.0-78.0)
[2021-12-29 16:00] VITALS: BP 117/72; PULSE 88; RESP 10; O2SAT 96
== END 2021-12-29 16:30 | disposition home or self-care (01) ==
PROVIDERS: Emergency Provider Student in an Organized Health Care Education/Training Program; Visit Provider Student in an Organized Health Care Education/Training Program
DX: R07.89 Other chest pain (principal); R06.02 Shortness of breath
CPT/HCPCS: 71275; 80048; 84484; 85025; 93005; 96360; 99283; J7030; Q9967; A4216

== ENCOUNTER 2022-01-02 12:47 | Outpatient (CLI) | payer OTHER, SELFPAY ==
--- NOTE | 2022-01-02 13:00 | VDLE_ITS ---
Reason For Study: Swelling RIGHT LEFT GSV is normal. GSV is normal. CFV is compressible, spontaneous, phasic, CFV is compressible, spontaneous, phasic, competent and demonstrates normal competent, and demonstrates normal augmentation. augmentation. FV is compressible, spontaneous, phasic, FV is compressible, spontaneous, phasic, competent and demonstrates normal competent and demonstrates normal augmentation. augmentation. POP V is compressible, spontaneous, phasic, POP V is compressible, spontaneous, phasic, competent and demonstrates normal competent and demonstrates normal augmentation. augmentation. T/P Trunk is compressible. T/P Trunk is compressible. PTV is compressible. PTV is compressible. RT PerV is compressible. LT PerV is compressible. Procedure This is a venous duplex using B-mode, color flow and spectral Doppler. Exam performed in department. A preliminary report was called and/or faxed to [facility]. VL/Venous Duplex US - Ilya Extrem Interpretation Summary Deep veins of the lower extremities are bilaterally patent and compressible seg mentally. There is no evidence of deep vein thrombosis on either side. Valvular competence appears in tact within the proximal deep venous systems bilaterally. The great saphenous veins appear bila terally patent and compressible segmentally. Ordering Physician: Isiah Yang Performed By: Constance Mohamud, RVT
== END 2022-01-02 23:59 | disposition home or self-care (01) ==
PROVIDERS: Referring Provider Podiatrist; Visit Provider Podiatrist
DX: S92.011A Displaced fracture of body of right calcaneus, initial encounter for closed fracture (principal); T79.A21A Traumatic compartment syndrome of right lower extremity, initial encounter
CPT/HCPCS: 93970

== ENCOUNTER → 2022-02-08 | Outpatient (CLI) | payer OTHER, SELFPAY ==
--- NOTE | 2022-02-08 07:11 | CT_ITS ---
CT lower extremity without contrast injection right FINDINGS: There is internal fixation with threaded screw and transferred first plate laterally. There is comminution of the original fracture of the calcaneus and there is still medial position of a fragment of cortex. Overall position and alignment appears satisfactory. CT/Extremity Lower without Contra IMPRESSION: Internal fixation comminuted fracture of the right calcaneus. Electronically Signed: Mainor Silva MD at 23:32 EDT ,
== END | disposition home or self-care (01) ==
LOC: CT 07:09
PROVIDERS: Referring Provider Podiatrist; Visit Provider Podiatrist
DX: S92.011A Displaced fracture of body of right calcaneus, initial encounter for closed fracture (principal)
CPT/HCPCS: 73700

== ENCOUNTER 2022-05-15 12:30 | Outpatient (RCR) | payer OTHER, SELFPAY ==
--- NOTE | 2022-02-11 17:23 | HP.PTEVAL ---
Patient's Visit Information JOSE EDUARDO JACINTO is a 26 year old M referred to Physical Therapy by Dr. Isiah Yang DPM with a diagnosis of Displaced Heel Fracture. Date of Evaluation: 02/11/22 Physical Therapist: Kassie Ramirez DPT - Visit Plan Frequency: 3x /Week Duration: 4 Weeks Plan: 02/11/22: Currently NWB- when allowed by MD progress as tolerate through WB- Focus on LE ROM, strength, proprioception and functional mobility. 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 Asked if they could store an overshipment of milk- went over to help the lady cart [employer] across the parking lot- hit a pot hole and his leg was caught under it and was trapped under it Nov 29, 2021. Squad called and went to [place] [facility]- did fasciotomy and then re-construction surgery- by Dr. Yang. Back and forth from home to ER due to complications. Been home since mid December- Ground floor apartment- 3 stairs to enter- then all on one floor. Has a knee walker and crutches. Saw the MD 2 weeks ago he wanted to do a CT Scan and then start PT. Hopeful to start weight bearing tomorrow when he sees them. Has been in a CAM walker he takes it off to elevate but he wears it to sleep- but when he is up he is always in the CAM walker. He is currently doing exercises to do range of motion but does not have any weight bearing. No pain in the foot but does have pain in the knee. He is taking Tylenol 2x a [address] but has not needed any in the last few weeks. Worst: 2/10 Agg: bumping, trying to get it in the boot, putting the compression stocking back on. Eases: elevate, ice, rest. Best: 0/10. Describes the pain as achy and throbbing- mostly its just uncomfortable. Does have N/T in his toes- mostly the great toe on the bottom- getting more and more feeling. Does have coldness in the toes as well. Does have discomfort in his knee and on the left buttocks. 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 Was fit for an [employer] hope to have it in the next few weeks. PMHx: none Meds: Tylenol - Objective Posture: FH, RS- can correct but does not maintain. Gait: axillary crutches- NWB- does follow precautions. Seated HR/TR: HR: limited by 25% HR: toes movement. Observation: incisions healing well. Girth: Fig 8:58 cm Mall:30 cm, Mets:25 cm. ROM: DF:neutral, PF: 30 degrees Ever: 30 degrees Inv: 10 degrees. Flex: HS: severe, Gastroc: severe, Solues: severe. WB will be assessed as allowed by MD - Balance/Special Test Scores Lower Extremity Functional Score: 17 - Goals Goal 1:: Patient will be I with HEP and progression Goal Time Frame: 12-16 Weeks Goal 2:: Patient will ambulate >300 feet with a normalized gait pattern (when restrictions are lifted) Goal Time Frame: 12-16 Weeks Goal 3:: Patient will asc/desc 8 stairs recip with no HR (when restrictions are lifted) Goal Time Frame: 12-16 Weeks Goal 4:: Patient will SLS for 15 sec without LOB (when restrictions are lifted) Goal Time Frame: 12-16 Weeks - Rehabilitation Potential Physical Therapy Diagnosis: Patient presents with hypomobility- he has decreased LE and core strength/stabilization, ROM, flex, proprioception and muscular endurance leading to abnormal gait and increased pain with ADL's. Rehabilitation Potential: Fair - Anticipated Interventions Patient/Client Instruction: Educate patient on: Benefits of Fitness Program Therapeutic Exercise to Include: Strength training, Endurance training, Balance training, Coordination, Agility training, Body mechanics, Postural training, Flexibilty training, Gait and locomotor training, Neuromotor development, Dynamic Lumbar Stabilization, Scapular Strength/Stabilization For the Purpose of:: To improve muscle performance and motor function TENS: Yes Cryotherapy (ice pack, ice massage): Yes Thermo therapy (hot pack): Yes Ultrasound (thermal/non thermal): No Thank you for the opportunity to evaluate your patient. For Medicare and Medicare HMO plans, please review the plan of care and approve it. It will need to be FAXED BACK to us at [phone] for Medicare purposes. For Medicare only, by signing this I certify the plan of care. Please let me know if there are questions or concerns regarding this plan of care. Physician Signature: Date:
--- NOTE | 2022-05-16 17:15 | HP.PTDCSUM ---
It has been my pleasure to treat JOSE EDUARDO JACINTO referred by Dr. Isiah Yang DPM, with the diagnosis of Displaced Heel Fracture for a total of 25 visit(s). Discharge Date: Please see the following information for a summary of their discharge status. Subjective: Patient reports that he is doing pretty well. He feels that he is 85-90% better. Goes back to the MD end of June. He feels that therapy is really helpful- he feels that he can continue at home. He is still getting better at balance. Patient reports that he is wearing the brace intermittently. He is back to work and doing great. Right top of foot/ankle Pain Intensity (Out of 10): 0 Right Zuniga Pain Intensity (Out of 10): 0 % Improvement: 90 Objective/Function: Posture: FH, RS- can correct but does not maintain. Gait: slightly antalgic- no AD- mild decrease in stance time. Standing HR/TR: good SLS: 3 seconds Girth: Fig 8:57 cm Mall:25 cm, Mets:25 cm. ROM: DF:10, PF: 60 degrees Ever: 30 degrees Inv: 10 degrees. Flex: HS: mod, Gastroc: mod, Solues: mod. Stairs: asc.desc 8 recip with 1 HR, Palpation: not tender to touch. Goal 1:: Patient will be I with HEP and progression Goal Progress: Goal Met Goal 2:: Patient will ambulate >300 feet with a normalized gait pattern (when restrictions are lifted) Goal Progress: Progressing Goal 3:: Patient will asc/desc 8 stairs recip with no HR (when restrictions are lifted) Goal Progress: Progressing Goal 4:: Patient will SLS for 15 sec without LOB (when restrictions are lifted) Goal Progress: Progressing Plan: 05/16/22: Discharge to I HEP. 02/13/22: WBAT MD recommendations per pt report in CAM boot. 02/11/22: Focus on LE ROM, strength, proprioception and functional mobility If there are questions or concerns regarding this patient's physical therapy, please feel free to call me at [phone]. Thank you for the referral of this patient. Sincerely, Kassie Ramirez DPT Balance/Gait/Functional tests - Balance/Special Test Scores Lower Extremity Functional Score: 61
== END 2022-05-15 19:00 | disposition home or self-care (01) ==
LOC: PT 12:30
PROVIDERS: Referring Provider Podiatrist; Visit Provider Podiatrist
DX: S92.011D Displaced fracture of body of right calcaneus, subsequent encounter for fracture with routine healing (principal); S87.81XD Crushing injury of right lower leg, subsequent encounter; T79.A21D Traumatic compartment syndrome of right lower extremity, subsequent encounter
CPT/HCPCS: 97110; 97162

== ENCOUNTER 2023-10-17 11:20 | Day surgery (SDC) | payer BC, SELFPAY ==
[2023-10-17] VITALS (7 sets, daily range): BP systolic 123–149; BP diastolic 77–99; PULSE 92–110; RESP 16–18; TEMP 36.1–37; O2SAT 93–99; BMI 40.0
[2023-10-17] MEDS: Lactated Ringers 1,000 ML 15 ML IV (12:13)
--- OUTSIDE RECORDS SUMMARY | 2023-10-17 12:30 | XMS RPT_ITS | CCD ---
Author Name Unknown Address [address] [place] [address] [address] [place] [id number] Organization [facility] Care Team Providers Care Mix Crusher Operator Name Role Phone Stanley Macias PA-C Primary Care Provider [phone] Medications Completed/Discontinued Medications Medication Drug Class(es) Dates Sig (Normalized) Sig (Original) ondansetron 4 mg disintegrating oral tablet (2 sources) Serotonin-3 Receptor Antagonist Start: 05-14-2022 take 1 tablet by mouth every eight hours as needed for nausea and nausea ondansetron orally disintegrating (ZOFRAN ODT) 4 mg disintegrating tablet Indications: Nausea Take 1 tablet by mouth every 8 hours as needed for nausea/vomiting. 15 tablet 0 05/14/2022 Active Problems Problem Classification Problem Date Documented Date Episodic/Chronic Disorders usually diagnosed in infancy, childhood, or adolescence (2 sources) Attention deficit hyperactivity disorder, predominantly inattentive type; Translations: [Other specified behavioral and emotional disorders with onset usually occurring in childhood and adolescence] Onset: 09-11-2010 09-11-2010 Chronic Immunizations and screening for infectious disease (1 source) Suspected disease caused by 2019-nCoV; Translations: [Suspected COVID-19 virus infection] Episodic Nausea and vomiting (1 source) Nausea; Translations: [Nausea] Episodic Results Test Name Value Interpretation Reference Range Facil ity Vital Signs Date Time Vital Sign Value Performing Clinician Faci litana rosa 05-14-2022 16:37-0400 Body temperature 98.6 [degF] El Ruiz APRN.CASE COORDINATOR Work Phone: [facility] 05-14-2022 16:37-0400 Body weight 118.39 kg El Ruiz APRN.CASE COORDINATOR Work Phone: [facility] 05-14-2022 16:37-0400 Diastolic blood pressure 82 mm[Hg] El Ruiz GEAR HOBBER OPERATOR.CASE COORDINATOR Work Phone: [facility] 05-14-2022 16:37-0400 Heart rate 108 /min El Ruiz APRN.CASE COORDINATOR Work Phone: [facility] 05-14-2022 16:37-0400 Respiratory rate 16 /min El Ruiz GEAR HOBBER OPERATOR.CASE COORDINATOR Work Phone: [facility] 05-14-2022 16:37-0400 SaO2% (BldA) [Mass fraction] 97 % El Ruiz GEAR HOBBER OPERATOR.CASE COORDINATOR Work Phone: [facility] 05-14-2022 16:37-0400 Systolic blood pressure 128 mm[Hg] El Ruiz GEAR HOBBER OPERATOR.CASE COORDINATOR Work Phone: [facility] Encounters Encounter Date Encounter Type Care Provider Facility Start: 05-16-2022 Telephone encounter Jeff Duran MD Work Phone: [facility] Procedures Date Procedure Procedure Detail Performing Clinician Start: 08-31-2018 Adult depression screening assessment El Ruiz APRN.CASE COORDINATOR Work Phone: Plan of Treatment Date Care Activity Detail Author Start: 06-13-2022 Influenza vaccination INFLUENZA (#1) [facility] Start: 08-31-2019 Adult depression screening assessment DEPRESSION SCREENING [facility] Start: 02-25-2018 Urine microalbumin profile DTAP,TDAP,TD (2 - Td or Tdap) [facility] Start: 2011 HEPATITIS C SCREENING HEPATITIS C SCREENING [facility] Start: 2011 HIV SCREENING HIV SCREENING [facility] Start: 01-21-1994 COVID-19 VACCINE (#1) COVID-19 VACCINE (#1) [facility] Influenza virus A an d B RNA and SARS-CoV-2 (COVID-19) N gene panel - Respiratory specimen by KRISTYN with probe detection COVID WITH FLUA+B, ROUTINE Microbiology Routine Suspected COVID-19 virus infection Ordered: 05/14/2022 [facility] Work Phone: Immunizations Immunization Date Immunization Notes Care Provider Fa yuan 02-26-2008 tetanus toxoid, redu guevara diphtheria toxoid, and acellular pertussis vaccine, adsorbed El Joseph GEAR HOBBER OPERATOR.[facility] Work Phone: [facility] Work Phone: Social History Date Type Detail Facility Tobacco smoking stat us NHIS Never smoked tobacco [facility] Work Phone: Start: 05-14-2022 Alcohol intake Current drinke r of alcohol (finding) [facility] Start: 08-06-2018 History SDOH Alcohol Comment seldom [facility] Start: 1995 Sex Assigned At Not on file [facility] Note 05-16-2022 Telephone Encounter - Myla Lowry LPN - 05/16/2022 7:52 PM EDTTelephone Encounter - Myla Lowry LPN - 05/16/2022 7:49 PM EDTTelephone Encounter - Myla Lowry LPN - 05/16/2022 5:15 PM EDT Note Date & Type Note Facility 05-16-2022 Miscellaneous Notes Phone call placed patient advised (see prior provider encounter) Patient verbalized understanding, agreed with plan of care. Myla Lowry LPN ----- Message from Jeff Cuba MD sent at 05/16/2022 2:44 PM EDT ----- Patient has not viewed positive COVID-19 test in MyChart. Phone call placed,brief message left to contact a nurse. Myla Lowry LPN ----- Message from Jeff Cuba MD sent at 05/16/2022 2:44 PM EDT ----- Patient has not viewed positive COVID-19 test in MyChart. documented in this encounter [facility] Influenza virus A and B RNA and SARS-CoV-2 (COVID-19) N gene panel KRISTYN+probe (Resp) 05-14-2022 Note Date & Type Note Facility 05-14-2022 Influenza virus A and B RNA and SARS-CoV-2 (COVID-19) N gene panel KRISTYN+probe (Resp) COVID 19 RESULT: SARS-CoV-2 (Agent of COVID-19) Detected by RT-PCR or equivalent method. james [id number] (GIGI)_EUA This test was developed and its performance characteristics determined by [facility]'s [facility]. This test has been authorized by FDA under an Emergency Use Authorization (EUA). This test has been validated in accordance with the FDA's Guidance Document Policy for Diagnostics Testing in Laboratories Certified to Perform High Complexity Testing under CLIA prior to Emergency use Authorization for Coronavirus Disease 2019 during the Public Health Emergency issued on December 11, 2019. Test performed by [facility], [facility], [address] [place] [address]. INFLUENZA A PCR: Negative for Influenza A by RT-PCR INFLUENZA B PCR: Negative for Influenza B by RT-PCR [facility] Progress note 05-14-2022 Note Date & Type Note Facility 05-14-2022 Note HNO ID: [id number] Author: El Ruiz APRN.CASE COORDINATOR Service: ? Author Type: Nurse Practitioner Type: Progress Notes Filed: 05/14/2022 5:26 PM Note Text: Subjective HPI HPI Jw Ray is a 26 year old male who presents today for CC of congestion, cough, fever, diarrhea, nausea. This started 3 days ago/improving. Has tried otc medication for relief. Symptoms are worsened by nothing. Risk factors recent exposure to covid. Denies cp/sob, vomiting, ear pain, st. .Patient presents with: Diarrhea: abdominal discomfort, not eating, fever and congestion x 3 days PAST MEDICAL HISTORY Diagnosis Date - Acute appendicitis 07/07/2015 - Sleep apnea PAST SURGICAL HISTORY Procedure Laterality Date - EXTRACTION, ERUPTED TOOTH OR EXPOSED ROOT (ELEVATION AND/OR FORCEPS REMOVAL) 2013 - LAPAROSCOPIC APPENDECTOMY 07/07/2015 ALLERGIES Patient has no known allergies. MEDICATIONS ondansetron orally disintegrating (ZOFRAN ODT) 4 mg disintegrating tablet Take 1 tablet by mouth every 8 hours as needed for nausea/vomiting. triamcinolone (KENALOG IN ORABASE) 0.1 % paste Small amount twice a day to ulcers in mouth until better sertraline (ZOLOFT) 50 mg tablet Take 1.5 tablets by mouth once daily. FAMILY HISTORY Adopted: Yes Social History Tobacco Use - Smoking status: Never Smoker - Smokeless tobacco: Never Used Substance Use Topics - Alcohol use: Yes Comment: seldom - Drug use: No ROS Objective Blood pressure 128/82, pulse 108, temperature 37 ?C (98.6 ?F), resp. rate 16, weight 118.4 kg (261 lb), SpO2 97 %. Physical Exam Constitutional: General: He is not in acute distress. Appearance: He is not toxic-appearing or diaphoretic. HENT: Head: Normocephalic and atraumatic. Cardiovascular: Rate and Rhythm: Normal rate and regular rhythm. Heart sounds: Normal heart sounds, S1 normal and S2 normal. Pulmonary: Effort: Pulmonary effort is normal. Breath sounds: Normal breath sounds. Abdominal: General: Bowel sounds are normal. Palpations: Abdomen is soft. Tenderness: There is no abdominal tenderness. Lymphadenopathy: Cervical: No cervical adenopathy. Right cervical: No superficial cervical adenopathy. Left cervical: No superficial cervical adenopathy. Neurological: Mental Status: He is alert and oriented to person, place, and time. Gait: Gait is intact. ASSESSMENT/PLAN: 1. Suspected COVID-19 virus infection - ICD9: V01.79, ICD10: Z20.822 (primary diagnosis) Discussed quarantine, social distancing otc medications discussed Push fluids -If you experience chest pain/shortness of breath go to ER 2. Nausea - ICD9: 787.02, ICD10: R11.0 -Discussed gentle rehydration -BRAT Diet (Bananas, Rice, Apple Sauce, Ruskin) -If no better in 7-10 days follow up back in clinic or with primary care provider -Follow up in the ER with signs of dehydration, increasing abdominal pain, high fever, or blood in vomit or stool. - ONDANSETRON 4 MG DISINTEGRATING TABLET Agrees to plan El Ruiz APRN.CNP [facility] Note 05-14-2022 Addendum Note - El Ruiz APRN.CNP - 05/14/2022 7:01 PM EDT Note Date & Type Note Facility 05-14-2022 Miscellaneous Notes Addended by: EL RUIZ on: 05/14/2022 07:01 PM Modules accepted: Orders documented in this encounter [facility] History of Present illness Narrative 05-14-2022 El Ruiz APRN.CNP - 05/14/2022 5:20 PM EDT Note Date & Type Note Facility 05-14-2022 History of Presen t illness Narrative Subjective HPI HPI Jw Ray is a 26 year old male who presents today for CC of congestion, cough, fever, diarrhea, nausea. This started 3 days ago/improving. Has tried otc medication for relief. Symptoms are worsened by nothing. Risk factors recent exposure to covid. Denies cp/sob, vomiting, ear pain, st. .Patient presents with: Diarrhea: abdominal discomfort, not eating, fever and congestion x 3 days PAST MEDICAL HISTORY Diagnosis Date Acute appendicitis 07/07/2015 Sleep apnea PAST SURGICAL HISTORY Procedure Laterality Date EXTRACTION, ERUPTED TOOTH OR EXPOSED ROOT (ELEVATION AND/OR FORCEPS REMOVAL) 2013 LAPAROSCOPIC APPENDECTOMY 07/07/2015 ALLERGIES Patient has no known allergies. MEDICATIONS ondansetron orally disintegrating (ZOFRAN ODT) 4 mg disintegrating tablet Take 1 tablet by mouth every 8 hours as needed for nausea/vomiting. triamcinolone (KENALOG IN ORABASE) 0.1 % paste Small amount twice a day to ulcers in mouth until better sertraline (ZOLOFT) 50 mg tablet Take 1.5 tablets by mouth once daily. FAMILY HISTORY Adopted: Yes Social History Tobacco Use Smoking status: Never Smoker Smokeless tobacco: Never Used Substance Use Topics Alcohol use: Yes Comment: seldom Drug use: No ROS Objective Blood pressure 128/82, pulse 108, temperature 37 C (98.6 F), resp. rate 16, weight 118.4 kg (261 lb), SpO2 97 %. Physical Exam Constitutional: General: He is not in acute distress. Appearance: He is not toxic-appearing or diaphoretic. HENT: Head: Normocephalic and atraumatic. Cardiovascular: Rate and Rhythm: Normal rate and regular rhythm. Heart sounds: Normal heart sounds, S1 normal and S2 normal. Pulmonary: Effort: Pulmonary effort is normal. Breath sounds: Normal breath sounds. Abdominal: General: Bowel sounds are normal. Palpations: Abdomen is soft. Tenderness: There is no abdominal tenderness. Lymphadenopathy: Cervical: No cervical adenopathy. Right cervical: No superficial cervical adenopathy. Left cervical: No superficial cervical adenopathy. Neurological: Mental Status: He is alert and oriented to person, place, and time. Gait: Gait is intact. ASSESSMENT/PLAN: 1. Suspected COVID-19 virus infection - ICD9: V01.79, ICD10: Z20.822 (primary diagnosis) Discussed quarantine, social distancing otc medications discussed Push fluids -If you experience chest pain/shortness of breath go to ER 2. Nausea - ICD9: 787.02, ICD10: R11.0 -Discussed gentle rehydration -BRAT Diet (Bananas, Rice, Apple Sauce, Ruskin) -If no better in 7-10 days follow up back in clinic or with primary care provider -Follow up in the ER with signs of dehydration, increasing abdominal pain, high fever, or blood in vomit or stool. - ONDANSETRON 4 MG DISINTEGRATING TABLET Agrees to plan El Ruiz APRN.DEV documented in this encounter [facility] Evaluation note Note Date & Type Note Facility documented in this encounter [facility] Health Concerns Infection Onset Date Last Indicated Resolved Time COVID-19 Confirmed 05/14/2022 05/14/2022 Summary Purpose Family History No Family History Records Found Advance Directives No Advanced Directives Records Found Additional Source Comments Source Comments (unrecognize d section and content) In the event this informatio n is protected by the Federal Confidentiality of Alcohol and Drug Abuse Patient Records regulations: The Federal rules restrict any use of the information to criminally investigate or prosecute any alcohol or drug abuse patient[facility] event this information is protected by the Federal Confidentiality of Alcohol and Drug Abuse Patient Records regulations: The Federal rules restrict any use of the information to criminally investigate or prosecute any alcohol or drug abuse patient.[facility] Reason for Visit (unrecogniz ed section and content) Reason Comments Results Care Teams (unrecognized sec tion and content) Mix Crusher Operator Relationship Specialty Start Date End Date Stanley Macias PA-C [address] [place] [address] PCP - General Family Practice 08/31/18 (unrecognized sect ion and content) No Status Records Found INFORMATION SOURCE (unrecogn ized section and content) FOR RECORDS PERTAINING TO PATIENTS WHO ARE OR HAVE BEEN ENROLLED IN A CHEMICAL DEPENDENCY/SUBSTANCEABUSE PROGRAM, SOME INFORMATION MAY BE OMITTED. This clinical summary was aggregated from multiple sources. Caution should be exercised in using it in the provision of clinical care. This summary normalizes information from multiple sources, and as a consequence, information in this document may materially change the coding, format and clinical context of patient data. In addition, data may be omitted in some cases. CLINICAL DECISIONS SHOULD BE BASED ON THE PRIMARY CLINICAL RECORDS. [employer] provides no warranty or guarantee of the accuracy or completeness of information in this document.
[2023-10-17] MEDS: Cefazolin 3 GM in 0.9% Normal Saline (100mL Bag) 100 ML IV (13:30)
[2023-10-17] MEDS: Bupivacaine 0.5% PF 10 ML VIAL (13:40)
--- NOTE | 2023-10-17 14:10 | PCM.OPRPT ---
Problems Associated Problem List Diagnoses (1) Ingrowing nail: (2) Pain in right toe(s): (3) Pain in left toe(s): Report of Operation Date of Procedure: 10/17/23 Pre-Operative Diagnosis: 1) ingrowing nail bilateral hallux Post-Operative Diagnosis: same Surgery/Procedure Performed:: bilateral hallux matrixectomy Description of Surgical Findings:: Patient brought back the operating placed comfortably in supine position on the operating room table. Patient induced under MAC anesthesia. Bilateral feet prepped using ChloraPrep using typical aseptic fashion. Scrubbed prepped and draped using typical aseptic fashion. Bilateral hallux block performed with 10 cc of half percent Marcaine plain. Bilateral hallux total matrixectomy was performed atraumatically. The hallux nail was freed from the nailbed inferiorly the proximal and medial/lateral nail folds using a spatula. Nail was removed using sterile hemostats. Electrocautery was used for nail matrix destruction. Both bilateral hallux flushed with copious amounts normal sterile saline. Dressed with Bactroban Adaptic 4 x 4's and Coban. Patient transferred to PACU vital signs stable vascular status intact all digits for further monitoring prior to discharge. Patient tolerated procedure and anesthesia well apparent satisfactory condition.
== END 2023-10-17 15:21 | disposition home or self-care (01) ==
LOC: SDC 11:28 → AC 11:29
PROVIDERS: Referring Provider Podiatrist; Visit Provider Podiatrist
PROC: (CPT 11750; principal; 2023-10-17 12:50)
DX: L60.0 Ingrowing nail (principal); M79.674 Pain in right toe(s); M79.675 Pain in left toe(s); F17.200 Nicotine dependence, unspecified, uncomplicated
CPT/HCPCS: 11765; 00400; J7120; J2405